=== PATIENT | female | born 1990 | race Hispanic/Latino ===

== ENCOUNTER 2018-03-26 17:25 | Emergency (ER) | payer OTHER, SELFPAY ==
[2018-03-26 20:32] LABS: Urine Blood NEGATIVE (NEG); Urine Glucose NEGATIVE (NEG); Urine Protein NEGATIVE (NEG); Urine pH 7.5 (5.0-7.0)
[2018-03-26 20:35] LABS: Urine Amorphous Sediment 1+ /HPF (NONE SEEN); Urine Bacteria <20 /HPF (<20); Urine Culture Reflex Order NOT NEEDED; Urine RBC <5 /HPF (NONE SEEN)
--- NOTE | 2018-03-26 20:48 | ER ---
Nurse's Notes [facility] Name: Raissa Goel Age: 28 yrs Sex: Female : 1990 Arrival Date: 03/26/2018 Time: 17:30 Bed 26 Private MD: Diagnosis: Contusion of abdominal wall;early Presentation: 03/26 17:57 Presenting complaint: Patient states: Reports slipping while walking down stairs and aj sliding on her bottom down "a few stairs". Reports lower back pain that started today. Denies vaginal bleeding. Ambulated with steady quick gait and displayed no discomfort when sitting or standing. Care prior to arrival: None. Mechanism of Injury: Fall from standing position. Trauma event details: Injury occurred in the [facility], Injury occurred: at home. Injury occurred: March 25, 2018. 17:57 Acuity: SENA 4 aj 17:57 Method Of Arrival: Ambulatory aj 20:54 Transition of care: patient was not received from another setting of care. Onset of rv symptoms was March 25, 2018 at 12:00. Risk Assessment: Do you want to hurt yourself or someone else? Patient reports no desire to harm self or others. Initial Sepsis Screen: Does the patient meet any 2 criteria? No. Patient's initial sepsis screen is negative. Does the patient have a suspected source of infection? No. Patient's initial sepsis screen is negative. 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 - Social history:: Smoking status: Patient/guardian denies using tobacco. - Ebola Screening: : Patient negative for fever greater than or equal to 101.5 degrees Fahrenheit, and additional compatible Ebola Virus Disease symptoms Patient denies exposure to infectious person Patient denies travel to an Ebola-affected area in the 21 days before illness onset No symptoms or risks identified at this time. Screenin:53 Abuse screen: Denies threats or abuse. Denies injuries from another. Nutritional rv screening: No deficits noted. Tuberculosis screening: No symptoms or risk factors identified. Fall Risk None identified. Primary Survey: 17:57 Breathing/Chest: Respiratory pattern: regular, Respiratory effort: spontaneous, aj unlabored, Breath sounds: clear, bilaterally. Circulation: Skin color: pink, Skin temperature: warm, dry. Disability Alert. 20:54 Reassessment Breathing/Chest Respiratory pattern Regular. rv Assessment: 17:57 General: Appears in no apparent distress. comfortable, Behavior is calm, cooperative, aj appropriate for age. Pain: Complains of pain in buttocks. Neuro: Level of Consciousness is awake, alert, obeys commands, Oriented to person, place, time, situation, Appropriate for age. Respiratory: Airway is patent Respiratory effort is even, unlabored, Respiratory pattern is regular, symmetrical. Derm: Skin is intact, is healthy with good turgor, Skin is pink, warm \\T\\ dry. normal. Musculoskeletal: Reports pain in buttocks. 19:59 Reassessment: Patient appears in no apparent distress at this time. rv Vital Signs: 17:57 BP 101 / 66; Pulse 94; Resp 20; Temp 97.5; Pulse Ox 100% on R/A; Weight 57.15 kg; aj Height 5 ft. 1 in. (154.94 cm); 19:59 BP 111 / 90; Pulse 88; Resp 16; Pulse Ox 100% on R/A; rv 20:00 BP 98 / 61; Pulse 82; Resp 16; Pulse Ox 100% ; rv 20:00 Pulse 84; Resp 17; Pulse Ox 100% ; rv 20:53 BP 100 / 59; Pulse 82; Resp 15; Pulse Ox 100% on R/A; rv 17:57 Body Mass Index 23.81 (57.15 kg, 154.94 cm) aj [place] Coma Score: 17:57 Eye Response: spontaneous(4). Verbal Response: oriented(5). Motor Response: obeys commands(6). Total: 15. Trauma Score (Adult): 17:57 Eye Response: spontaneous(1); Verbal Response: oriented(1); Motor Response: obeys aj commands(2); Systolic BP: > 89 mm Hg(4); Respiratory Rate: 10 to 29 per min(4); Rolando Score: 15; Trauma Score: 12 ED Course: 17:30 Patient arrived in ED. mr 17:59 Triage completed. aj 18:01 Arm band placed on left wrist. Patient placed in waiting room, Patient notified of wait aj time. 19:41 Shivani Lin LVN is Primary Nurse. ed1 19:41 Deon Grissom MD is Attending Physician. gs 19:58 Urine Culture Sent. rv 19:58 Urine Microscopic Only Sent. rv 20:38 TRANSVAG OB In Process Unspecified. EDMS 20:38 Ultrasound completed. Patient tolerated well. Patient moved back from ultrasound. cy 20:46 Yanet Canada MD is Referral Physician. gs 20:53 No provider procedures requiring assistance completed. Patient did not have IV access rv during this emergency room visit. 20:55 Patient has correct armband on for positive identification. Bed in low position. Call rv light in reach. Side rails up X 1. Pulse ox on. NIBP on. Administered Medications: No medications were administered Outcome: 20:47 Discharge ordered by . gs 20:54 Discharged to home ambulatory. rv 20:54 Condition: good 20:54 Discharge instructions given to patient, Instructed on discharge instructions, follow up and referral plans. Demonstrated understanding of instructions, follow-up care. 20:55 Patient left the ED. rv Signatures: Dispatcher [employer] EDIzabella Almendarez, CATHY MartinaChloe mr RileyShivani, JOSUE NEEDLE STRAIGHTENER ed1 Deon Grissom MD MD gs Yong, Chheannith Sancho Peterson RN RN rv
--- NOTE | 2018-03-26 20:48 | EDPHYS ---
Physician Documentation [facility] Name: Raissa Goel Age: 28 yrs Sex: Female : 1990 Arrival Date: 03/26/2018 Time: 17:30 Bed 26 Private MD: ED Physician Deon Grissom HPI: 03/26 20:40 This 28 yrs old Female presents to ER via Ambulatory with complaints of 5 wks gs , Fall Injury, Abdominal Cramping. 20:40 Details of fall: The patient fell from an upright position, while walking, fell 2 gs steps. Onset: The symptoms/episode began/occurred acutely, yesterday. Associated injuries: The patient sustained right iliac crest. Severity of symptoms: At their worst the symptoms were mild, in the emergency department the symptoms are unchanged. The patient has experienced similar episodes in the past, a few times. The patient has not recently seen a physician. 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 - Social history:: Smoking status: Patient/guardian denies using tobacco. - Ebola Screening: : Patient negative for fever greater than or equal to 101.5 degrees Fahrenheit, and additional compatible Ebola Virus Disease symptoms Patient denies exposure to infectious person Patient denies travel to an Ebola-affected area in the 21 days before illness onset No symptoms or risks identified at this time. ROS: 20:40 All other systems are negative. gs Exam: 20:40 Head/Face: Normocephalic, atraumatic. Eyes: Pupils equal round and reactive to light, gs extra-ocular motions intact. Lids and lashes normal. Conjunctiva and sclera are non-icteric and not injected. Cornea within normal limits. Periorbital areas with no swelling, redness, or edema. ENT: Nares patent. No nasal discharge, no septal abnormalities noted. Tympanic membranes are normal and external auditory canals are clear. Oropharynx with no redness, swelling, or masses, exudates, or evidence of obstruction, uvula midline. Mucous membranes moist. Neck: Trachea midline, no thyromegaly or masses palpated, and no cervical lymphadenopathy. Supple, full range of motion without nuchal rigidity, or vertebral point tenderness. No Meningismus. Chest/axilla: Normal chest wall appearance and motion. Nontender with no deformity. No lesions are appreciated. Cardiovascular: Regular rate and rhythm with a normal S1 and S2. No gallops, murmurs, or rubs. Normal PMI, no JVD. No pulse deficits. Respiratory: Lungs have equal breath sounds bilaterally, clear to auscultation and percussion. No rales, rhonchi or wheezes noted. No increased work of breathing, no retractions or nasal flaring. Abdomen/GI: Soft, non-tender, with normal bowel sounds. No distension or tympany. No guarding or rebound. No evidence of tenderness throughout. Back: No spinal tenderness. No costovertebral tenderness. Full range of motion. Skin: Warm, dry with normal turgor. Normal color with no rashes, no lesions, and no evidence of cellulitis. MS/ Extremity: Pulses equal, no cyanosis. Neurovascular intact. Full, normal range of motion. Neuro: Awake and alert, GCS 15, oriented to person, place, time, and situation. Cranial nerves II-XII grossly intact. Motor strength 5/5 in all extremities. Sensory grossly intact. Cerebellar exam normal. Normal gait. 20:40 Constitutional: The patient appears alert, awake. Vital Signs: 17:57 BP 101 / 66; Pulse 94; Resp 20; Temp 97.5; Pulse Ox 100% on R/A; Weight 57.15 kg; aj Height 5 ft. 1 in. (154.94 cm); 19:59 BP 111 / 90; Pulse 88; Resp 16; Pulse Ox 100% on R/A; rv 20:00 BP 98 / 61; Pulse 82; Resp 16; Pulse Ox 100% ; rv 20:00 Pulse 84; Resp 17; Pulse Ox 100% ; rv 20:53 BP 100 / 59; Pulse 82; Resp 15; Pulse Ox 100% on R/A; rv 17:57 Body Mass Index 23.81 (57.15 kg, 154.94 cm) aj Rolando Coma Score: 17:57 Eye Response: spontaneous(4). Verbal Response: oriented(5). Motor Response: obeys aj commands(6). Total: 15. Trauma Score (Adult): 17:57 Eye Response: spontaneous(1); Verbal Response: oriented(1); Motor Response: obeys aj commands(2); Systolic BP: > 89 mm Hg(4); Respiratory Rate: 10 to 29 per min(4); Rolando Score: 15; Trauma Score: 12 MDM: 19:58 Patient medically screened. gs 20:40 Differential diagnosis: contusion. Data reviewed: vital signs, nurses notes. Counseling: I had a detailed discussion with the patient and/or guardian regarding: the historical points, exam findings, and any diagnostic results supporting the discharge/admit diagnosis, lab results, radiology results, the need for outpatient follow up. Response to treatment: the patient's symptoms have markedly improved after treatment, and as a result, I will discharge patient. 03/26 17:42 Order name: Urine Culture snw 03/26 17:42 Order name: Urine Microscopic Only; Complete Time: 20:40 snw 03/26 17:42 Order name: Urine Test (obtain specimen); Complete Time: 19:58 snw 03/26 19:59 Order name: US OB Limited 03/26 20:04 Order name: Urine Dipstick--Ancillary (enter results); Complete Time: 20:40 ar5 03/26 20:04 Order name: TRANSVAG OB EDND 03/26 17:42 Order name: Urine Dipstick-Ancillary (obtain specimen); Complete Time: 19:58 snw Administered Medications: No medications were administered Disposition: 03/26/18 20:47 Discharged to Home. Impression: Contusion of abdominal wall, early . - Condition is Stable. - Discharge Instructions: Contusion. - Medication Reconciliation Form, Thank You Letter, Antibiotic Education, Prescription Opioid Use form. - Follow up: Yanet Canada MD; When: 2 - 3 days; Reason: Re-evaluation by your physician. Signatures: Dispatcher [employer] Izabella Yusuf RN RN Gris Morales, ARABELLAC BONE CHAR KILN OPERATOR-Florenciow Deon Grissom MD MD gs Vicente, Ronaldo, RN RN rv Corrections: (The following items were deleted from the chart) 20:55 20:47 03/26/2018 20:47 Discharged to Home. Impression: Contusion of abdominal wall; rv early . Condition is Stable. Forms are Medication Reconciliation Form, Thank You Letter, Antibiotic Education, Prescription Opioid Use. Follow up: Mini Rekhi; When: 2 - 3 days; Reason: Re-evaluation by your physician. gs
--- NOTE | 2018-03-26 21:19 | RAD REPORT ---
EXAM DESCRIPTION: US - TRANSVAG OB - 03/26/2018 8:38 pm CLINICAL HISTORY: status post fall COMPARISON: None FINDINGS: The uterus measures 8 x 5 x 5 centimeters. A gestational sac is not seen within the endome trium. Small amount of fluid is present within the endometrium. A fibroid is not seen Ovaries are normal in size and echotexture. No significant free fluid IMPRESSION: Gestational sac is not seen within the endometrium. This could represent a normal intrau terine in which the gestational sac is not seen secondary to the early age. An can also have this appearance. A follow up endovaginal sonogram in 1 week is recommended
== END 2018-03-26 20:55 | disposition home or self-care (01) ==
LOC: ER 17:25
DX: S30.1XXA Contusion of abdominal wall, initial encounter (principal); W19.XXXA Unspecified fall, initial encounter; Y93.01 Activity, walking, marching and hiking; Y92.9 Unspecified place or not applicable; Z3A.01 Less than 8 weeks gestation of pregnancy
CPT/HCPCS: 76813; 81003; 81015; 87086; 87088; 99284

== ENCOUNTER 2018-04-12 15:09 | Emergency (ER) | payer OTHER, SELFPAY ==
[2018-04-12 15:34] LABS: Urine Blood 2+ (NEG); Urine Glucose NEGATIVE (NEG); Urine Protein TRACE (NEG); Urine Specific Gravity 1.025 (1.005-1.030)
[2018-04-12] MEDS ORDERED: NA CHLORIDE 0.9% 1,000 ML ONE (16:24)
[2018-04-12 17:00] LABS: Absolute Lymphocytes (CBC) 1.4 K/uL (0.7-4.9); Absolute Monocytes 0.4 K/uL (0.1-1.3); Absolute Neutrophil 4.1 K/uL (1.8-8.0); Basophils % 0.7 % (0-1.3); Eosinophils % 4.9 % (0-4.4); Hematocrit 43.4 % (36.0-45.0); MCH 25.4 pg (27.0-35.0); MCV 78.6 fL (80-100); MPV 8.9 fL (7.6-11.3); Monocytes % 6.9 % (3.3-12.3); RBC Red Blood Cell Count 5.52 M/uL (3.86-4.86)
[2018-04-12 17:09] LABS: BUN Blood Urea Nitrogen 15 mg/dL (7-18); Bicarbonate 27 mmol/L (21-32); Glucose Level 97 mg/dL (74-106); HCG, Quantitative 1369 mIU/mL (1-3); Potassium 3.4 mmol/L (3.5-5.1); Sodium Level 137 mmol/L (136-145)
--- NOTE | 2018-04-12 18:30 | ER ---
Nurse's Notes [facility] Name: Raissa Goel Age: 28 yrs Sex: Female : 1990 Arrival Date: 04/12/2018 Time: 15:11 Bed 16 Private MD: Diagnosis: Threatened Presentation: 04/12 15:11 Presenting complaint: Patient states: LMP- 02/17/18; 8 weeks AOG; im bleeding that hj started today; heavy bleeding; denies abd pain; A0;. Transition of care: patient was not received from another setting of care. Onset of symptoms was April 12, 2018. Risk Assessment: Do you want to hurt yourself or someone else? Patient reports no desire to harm self or others. Initial Sepsis Screen: Does the patient meet any 2 criteria? No. Patient's initial sepsis screen is negative. Does the patient have a suspected source of infection? No. Patient's initial sepsis screen is negative. Care prior to arrival: None. 15:11 Method Of Arrival: Ambulatory 15:11 Acuity: SENA 3 hj Triage Assessment: 15:14 General: Appears in no apparent distress. uncomfortable, Behavior is calm, cooperative, hj appropriate for age. Pain: Denies pain. : Reports vaginal bleeding that is heavy flow since few minutes ago;. 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 - Social history:: Smoking status: Patient/guardian denies using tobacco, Patient/guardian denies using alcohol. - Ebola Screening: : Patient negative for fever greater than or equal to 101.5 degrees Fahrenheit, and additional compatible Ebola Virus Disease symptoms Patient denies exposure to infectious person Patient denies travel to an Ebola-affected area in the 21 days before illness onset. Screenin:15 Abuse screen: Denies threats or abuse. Denies injuries from another. Nutritional hj screening: No deficits noted. Tuberculosis screening: No symptoms or risk factors identified. Fall Risk None identified. Assessment: 15:20 General: Appears in no apparent distress. comfortable, Behavior is calm, cooperative, rb1 Denies fever. Pain: Denies pain. Neuro: Level of Consciousness is awake, alert, obeys commands, Oriented to person, place, time, situation, Reports dizziness. Cardiovascular: Capillary refill < 3 seconds is brisk in bilateral fingers. Respiratory: Reports cough that is non-productive, since x 2 weeks Airway is patent Respiratory effort is even, unlabored, Respiratory pattern is regular, symmetrical. GI: No signs and/or symptoms were reported involving the gastrointestinal system. : Reports vaginal bleeding that is bright red, moderate flow, since 30 minutes ago Denies blood clots. Derm: Skin is dry, Skin is normal, Skin temperature is warm. 16:20 Reassessment: Patient appears in no apparent distress at this time. Patient and/or rb1 family updated on plan of care and expected duration. Pain level reassessed. Patient is alert, oriented x 3, equal unlabored respirations, skin warm/dry/pink. Patient denies pain at this time. 17:20 Reassessment: Patient appears in no apparent distress at this time. No changes from rb1 previously documented assessment. 18:20 Reassessment: Patient appears in no apparent distress at this time. Patient and/or rb1 family updated on plan of care and expected duration. Pain level reassessed. Patient is alert, oriented x 3, equal unlabored respirations, skin warm/dry/pink. Pt. ambulated to the bathroom without difficulty. Pt reports that the vaginal bleeding has stopped at this time. Provider notified. Vital Signs: 15:15 BP 105 / 71; Pulse 128; Resp 18; Temp 97.8(O); Pulse Ox 100% on R/A; Weight 57.15 kg; hj Height 5 ft. 1 in. (154.94 cm); Pain 0/10; 16:00 BP 102 / 70; Pulse 89; Resp 16; Pulse Ox 100% on R/A; Pain 0/10; rb1 17:00 BP 107 / 78; Pulse 82; Resp 17; Pulse Ox 100% on R/A; rb1 18:00 BP 107 / 63; Pulse 75; Resp 16; Pulse Ox 100% on R/A; rb1 18:49 BP 112 / 75; Pulse 78; Resp 16; Pulse Ox 100% on R/A; rb1 15:15 Body Mass Index 23.81 (57.15 kg, 154.94 cm) ED Course: 15:11 Patient arrived in ED. as 15:12 Josephine Owusu FNP-C is [facility]. kb 15:12 Deon Grissom MD is Attending Physician. kb 15:13 Triage completed. hj 15:15 Arm band placed on right wrist. hj 15:15 Patient has correct armband on for positive identification. Placed in gown. Bed in low hj position. Call light in reach. Side rails up X 1. 15:21 Sandra Candelario, RN is Primary Nurse. rb1 16:20 Pulse ox on. NIBP on. rb1 18:27 Ultrasound completed. Patient tolerated well. Notified TECHNOLOGIES DIVISION CHAIR/PA josephine. sg3 18:51 No provider procedures requiring assistance completed. IV discontinued, intact, rb1 bleeding controlled, No redness/swelling at site. Pressure dressing applied. Administered Medications: 16:18 Drug: NS 0.9% 1000 ml Route: IV; Rate: 1000 ml; Site: left antecubital; rb1 17:20 Follow up: IV Status: Completed infusion rb1 18:30 Drug: Tylenol 1000 mg Route: PO; rb1 18:50 Follow up: Response: No adverse reaction rb1 Outcome: 18:29 Discharge ordered by MD. kb 18:51 Discharged to home ambulatory. rb1 18:51 Condition: stable 18:51 Discharge instructions given to patient, Instructed on discharge instructions, follow up and referral plans. Demonstrated understanding of instructions, follow-up care, Prescriptions given X none 18:52 Patient left the ED. rb1 Signatures: Josephine Owusu FNP-C FNP-Clau Simon Henry, RN RN Sandra Candelraio, RN RN rb1 Kate Tyler sg3 Corrections: (The following items were deleted from the chart) 15:17 15:15 Pulse 128bpm; Resp 18bpm; Pulse Ox 100% RA; Temp 97.8F Oral; 57.15 kg; Height 5 hj ft. 1 in.; BMI: 23.8; Pain 0/10; hj
--- NOTE | 2018-04-12 18:30 | EDPHYS ---
Physician Documentation [facility] Name: Raissa Goel Age: 28 yrs Sex: Female : 1990 Arrival Date: 04/12/2018 Time: 15:11 Bed 16 Private MD: ED Physician Deon Grissom HPI: 04/12 15:42 This 28 yrs old Female presents to ER via Ambulatory with complaints of kb Vaginal Bleeding, + Preg <12wks. 15:42 The patient presents to the emergency department with vaginal bleeding, that is kb moderate. The estimated gestational age is 8 weeks. course: care: none, Leakage of Fluid: none appreciated. Previous pregnancies: in previous pregnancies patient has had. Associated signs and symptoms: Pertinent positives: vaginal bleeding, Pertinent negatives: abdominal pain, chest pain, diarrhea, dysuria, fever, frequency, nausea, ruptured membranes, seizure, shortness of breath, vaginal discharge, vomiting. The patient has not experienced similar symptoms in the past. The patient has not recently seen a physician. 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 Reports it started when she got out of the shower. . 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 - Social history:: Smoking status: Patient/guardian denies using tobacco, Patient/guardian denies using alcohol. - Ebola Screening: : Patient negative for fever greater than or equal to 101.5 degrees Fahrenheit, and additional compatible Ebola Virus Disease symptoms Patient denies exposure to infectious person Patient denies travel to an Ebola-affected area in the 21 days before illness onset. ROS: 15:42 Constitutional: Negative for fever, chills, and weight loss, Cardiovascular: Negative kb for chest pain, palpitations, and edema, Respiratory: Negative for shortness of breath, cough, wheezing, and pleuritic chest pain, Abdomen/GI: Negative for abdominal pain, nausea, vomiting, diarrhea, and constipation, Back: Negative for injury and pain, MS/Extremity: Negative for injury and deformity, Skin: Negative for injury, rash, and discoloration, Neuro: Negative for headache, weakness, numbness, tingling, and seizure. 15:42 : Positive for vaginal bleeding. Exam: 15:42 Constitutional: This is a well developed, well nourished patient who is awake, alert, kb and in no acute distress. Head/Face: Normocephalic, atraumatic. ENT: Nares patent. No nasal discharge, no septal abnormalities noted. Tympanic membranes are normal and external auditory canals are clear. Oropharynx with no redness, swelling, or masses, exudates, or evidence of obstruction, uvula midline. Mucous membranes moist. Neck: Trachea midline, no thyromegaly or masses palpated, and no cervical lymphadenopathy. Supple, full range of motion without nuchal rigidity, or vertebral point tenderness. No Meningismus. Chest/axilla: Normal chest wall appearance and motion. Nontender with no deformity. No lesions are appreciated. Cardiovascular: Regular rate and rhythm with a normal S1 and S2. No gallops, murmurs, or rubs. Normal PMI, no JVD. No pulse deficits. Respiratory: Lungs have equal breath sounds bilaterally, clear to auscultation and percussion. No rales, rhonchi or wheezes noted. No increased work of breathing, no retractions or nasal flaring. Abdomen/GI: Soft, non-tender, with normal bowel sounds. No distension or tympany. No guarding or rebound. No evidence of tenderness throughout. Skin: Warm, dry with normal turgor. Normal color with no rashes, no lesions, and no evidence of cellulitis. MS/ Extremity: Pulses equal, no cyanosis. Neurovascular intact. Full, normal range of motion. Neuro: Awake and alert, GCS 15, oriented to person, place, time, and situation. Cranial nerves II-XII grossly intact. Motor strength 5/5 in all extremities. Sensory grossly intact. Cerebellar exam normal. Normal gait. Vital Signs: 15:15 BP 105 / 71; Pulse 128; Resp 18; Temp 97.8(O); Pulse Ox 100% on R/A; Weight 57.15 kg; hj Height 5 ft. 1 in. (154.94 cm); Pain 0/10; 16:00 BP 102 / 70; Pulse 89; Resp 16; Pulse Ox 100% on R/A; Pain 0/10; rb1 17:00 BP 107 / 78; Pulse 82; Resp 17; Pulse Ox 100% on R/A; rb1 18:00 BP 107 / 63; Pulse 75; Resp 16; Pulse Ox 100% on R/A; rb1 18:49 BP 112 / 75; Pulse 78; Resp 16; Pulse Ox 100% on R/A; rb1 15:15 Body Mass Index 23.81 (57.15 kg, 154.94 cm) hj MDM: 15:18 Patient medically screened. kb 15:44 Data reviewed: vital signs, nurses notes. Data interpreted: Pulse oximetry: on room air kb is 100 %. Interpretation: normal. 18:22 Counseling: I had a detailed discussion with the patient and/or guardian regarding: the kb historical points, exam findings, and any diagnostic results supporting the discharge/admit diagnosis, lab results, radiology results, the need for outpatient follow up, an OB/Gyne specialist, to return to the emergency department if symptoms worsen or persist or if there are any questions or concerns that arise at home. 04/12 15:25 Order name: Quantitative Hcg 04/12 15:25 Order name: Abo/rh Typing 04/12 15:25 Order name: Basic Metabolic Panel 04/12 15:25 Order name: CBC with Diff 04/12 15:32 Order name: Urine Dipstick--Ancillary (enter results) [facility] 04/12 15:32 Order name: Urine --Ancillary (enter results) [facility] 04/12 15:34 Order name: Urine --Ancillary; Complete Time: 15:35 [facility] 04/12 15:34 Order name: Urine Dipstick-Ancillary; Complete Time: 15:35 [facility] 04/12 17:03 Order name: CBC with Automated Diff; Complete Time: 17:04 [facility] 04/12 17:09 Order name: Basic Metabolic Panel; Complete Time: 17:12 [facility] 04/12 17:09 Order name: HCG, Quantitative; Complete Time: 17:12 [facility] 04/12 17:12 Order name: US Transvaginal Ob kb 04/12 18:10 Order name: ABO/RH no charge; Complete Time: 18:12 [facility] 04/12 18:11 Order name: ABO/RH typing; Complete Time: 18:12 [facility] 04/12 15:25 Order name: Urine Test (obtain specimen); Complete Time: 16:13 kb 04/12 15:25 Order name: IV Saline Lock; Complete Time: 16:13 kb 04/12 15:25 Order name: Labs collected and sent; Complete Time: 16:13 kb 04/12 15:25 Order name: NPO; Complete Time: 16:13 kb 04/12 15:25 Order name: Urine Dipstick-Ancillary (obtain specimen); Complete Time: 16:13 kb Administered Medications: 16:18 Drug: NS 0.9% 1000 ml Route: IV; Rate: 1000 ml; Site: left antecubital; rb1 17:20 Follow up: IV Status: Completed infusion rb1 18:30 Drug: Tylenol 1000 mg Route: PO; rb1 18:50 Follow up: Response: No adverse reaction rb1 Disposition: 04/13 16:28 Co-signature as Attending Physician, Deon Grissom MD. Disposition: 04/12/18 18:29 Discharged to Home. Impression: Threatened . - Condition is Stable. - Discharge Instructions: Threatened Miscarriage, [id number]. - Medication Reconciliation Form, Thank You Letter, Antibiotic Education, Prescription Opioid Use form. - Follow up: Emergency Department; When: As needed; Reason: Worsening of condition. Follow up: Private Physician; When: 2 - 3 days; Reason: Recheck today's complaints, Continuance of care, Re-evaluation by your physician. - Notes: Have repeat quantitative Hcg done in 48 hours Signatures: Dispatcher [employer] [facility] Josephine Owusu FNP-C ENDOSCOPIC TECHNICIAN-Brant Dukes RN RN Sandra Candelario RN RN rb1 Deon Grissom MD MD Corrections: (The following items were deleted from the chart) 04/12 18:52 18:29 04/12/2018 18:29 Discharged to Home. Impression: Threatened . Condition rb1 is Stable. Discharge Instructions: Threatened Miscarriage, [id number]. Forms are Medication Reconciliation Form, Thank You Letter, Antibiotic Education, Prescription Opioid Use. Follow up: Emergency Department; When: As needed; Reason: Worsening of condition. Follow up: Private Physician; When: 2 - 3 days; Reason: Recheck today's complaints, Continuance of care, Re-evaluation by your physician. kb
[2018-04-12] MEDS ORDERED: ACETAMINOPHEN 500 MG TAB ONE (18:35)
--- NOTE | 2018-04-12 19:34 | RAD REPORT ---
EXAM DESCRIPTION: US - Transvaginal OB - 04/12/2018 6:29 pm CLINICAL HISTORY: Vaginal bleeding, beta HCG 1369 COMPARISON: None. FINDINGS: Both ovaries are identifiable. Doppler evaluation shows normal blood flow within the ovari an stroma. No adnexal mass to suspect an ectopic . No blood or fluid in the cul-de-sac. Uterus is 10.1 x 4.4 x 4.9 cm. No myometrial mass identifiable. No intrauterine gestational sac, yolk sac or pole identifiable. There is heterogeneous material in the lower uterine segment and heterogeneity of the endometrial tissue in the fundal and midportio n of the uterus. IMPRESSION: No IUP is identified. Heterogeneous material in the lower uterine segment may be remnant of miscarriage. No adnexal mass identified. No sonographic findings for ectopic .
== END 2018-04-12 18:52 | disposition home or self-care (01) ==
LOC: ER 15:09
DX: O20.0 Threatened abortion (principal); Z3A.08 8 weeks gestation of pregnancy
CPT/HCPCS: 36415; 76817; 80048; 81003; 81025; 84702; 85025; 86900; 86901; 96360; 99283; J7030

== ENCOUNTER 2018-04-14 17:52 | Emergency (ER) | payer SELFPAY ==
[2018-04-14 18:35] LABS: Absolute Lymphocytes (CBC) 1.4 K/uL (0.7-4.9); Absolute Monocytes 0.4 K/uL (0.1-1.3); Absolute Neutrophil 3.9 K/uL (1.8-8.0); Basophils % 0.7 % (0-1.3); Eosinophils % 4.5 % (0-4.4); Hematocrit 38.6 % (36.0-45.0); Lymphocytes % 23.3 % (15.3-44.8); MPV 8.2 fL (7.6-11.3); Monocytes % 6.8 % (3.3-12.3); RBC Red Blood Cell Count 4.84 M/uL (3.86-4.86)
--- NOTE | 2018-04-14 19:00 | ER ---
Nurse's Notes [facility] Name: Raissa Goel Age: 28 yrs Sex: Female : 1990 Arrival Date: 04/14/2018 Time: 17:56 Bed 16 Private MD: Diagnosis: Spontaneous Presentation: 04/14 17:57 Presenting complaint: Patient states: I had a miscarriage Friday, and you all said to ch come back and get my blood re drawn. Transition of care: patient was not received from another setting of care. Onset of symptoms was April 12, 2018. Risk Assessment: Do you want to hurt yourself or someone else? Patient reports no desire to harm self or others. Initial Sepsis Screen: Does the patient meet any 2 criteria? No. Patient's initial sepsis screen is negative. Does the patient have a suspected source of infection? No. Patient's initial sepsis screen is negative. Care prior to arrival: None. 17:57 Method Of Arrival: Ambulatory 17:57 Acuity: SENA 4 Triage Assessment: 17:59 General: Appears in no apparent distress. comfortable, Behavior is calm, cooperative, ch appropriate for age. Pain: Denies pain. Historical: - Allergies: 17:59 No Known Allergies; - Home Meds: 17:59 Vitamin Oral tab 1 tab once daily [Active]; ch - PMHx: 17:59 None; - PSHx: 17:59 D \T\ C; ch - Immunization history:: Adult Immunizations up to date. - Social history:: Smoking status: Patient/guardian denies using tobacco. - Ebola Screening: : Patient negative for fever greater than or equal to 101.5 degrees Fahrenheit, and additional compatible Ebola Virus Disease symptoms Patient denies exposure to infectious person Patient denies travel to an Ebola-affected area in the 21 days before illness onset No symptoms or risks identified at this time. Screenin:00 Abuse screen: Denies threats or abuse. Denies injuries from another. Nutritional bp screening: No deficits noted. Tuberculosis screening: No symptoms or risk factors identified. Fall Risk None identified. Assessment: 18:00 General: Appears in no apparent distress. comfortable, Behavior is calm, cooperative, bp appropriate for age. Pain: Denies pain. Neuro: Level of Consciousness is awake, alert, obeys commands, Oriented to person, place, time, situation, Appropriate for age. Cardiovascular: No deficits noted. Respiratory: Airway is patent Respiratory effort is even, unlabored, Respiratory pattern is regular, symmetrical. GI: No signs and/or symptoms were reported involving the gastrointestinal system. : No signs and/or symptoms were reported regarding the genitourinary system. EENT: No deficits noted. Derm: No deficits noted. Musculoskeletal: Circulation, motion, and sensation intact. Range of motion: intact in all extremities. 19:18 Reassessment: Patient appears in no apparent distress at this time. Patient and/or jb4 family updated on plan of care and expected duration. Pain level reassessed. Patient is alert, oriented x 3, equal unlabored respirations, skin warm/dry/pink. Vital Signs: 17:59 BP 103 / 62; Pulse 71; Resp 16; Temp 98.5; Pulse Ox 99% on R/A; Weight 57.15 kg; Height ch 5 ft. 1 in. (154.94 cm); Pain 0/10; 19:18 BP 103 / 75; Pulse 60; Resp 16; Pulse Ox 100% on R/A; jb4 17:59 Body Mass Index 23.81 (57.15 kg, 154.94 cm) ED Course: 17:56 Patient arrived in ED. sb2 17:58 Triage completed. ch 17:59 Arm band placed on left wrist. Patient placed in an exam room, on a stretcher. ch 18:00 Patient has correct armband on for positive identification. Bed in low position. Call bp light in reach. Side rails up X2. 18:04 Garrett Perez, CATHY is Primary Nurse. bp 18:14 Gris Mares FNP-C is PHCP. snw 18:14 Jimenez Carrizales MD is Attending Physician. snw 18:30 Initial lab(s) drawn, by ED staff, sent to lab. Inserted saline lock: 20 gauge in right mh5 antecubital area, using aseptic technique. Blood collected. 18:30 HCG-Quantitative Sent. 5 18:30 CBC with Diff Sent. 5 19:18 No provider procedures requiring assistance completed. IV discontinued, intact, jb4 bleeding controlled. Administered Medications: No medications were administered Outcome: 18:59 Discharge ordered by . snw 19:18 Discharged to home ambulatory. jb4 19:18 Condition: stable 19:18 Discharge instructions given to patient, Instructed on discharge instructions, follow up and referral plans. medication usage, Demonstrated understanding of instructions, follow-up care, medications, Prescriptions given X 2. 19:20 Patient left the ED. jb4 Signatures: Nohemy Dean, RN RN Gris Mares, MICROCHIP SPECIALIST-C MICROCHIP SPECIALIST-Csnw Torres Yañez RN RN jb4 Juliet Martinez [facility] Garrett Perez RN RN Monika Tracy 2
--- NOTE | 2018-04-14 19:00 | EDPHYS ---
Physician Documentation [facility] Name: Raissa Goel Age: 28 yrs Sex: Female : 1990 Arrival Date: 04/14/2018 Time: 17:56 Bed 16 Private MD: ED Physician Jimenez Carrizales HPI: 04/14 18:57 This 28 yrs old Female presents to ER via Ambulatory with complaints of LAB snw WORK. 18:57 The patient presents with pt needs repeat Hcg. Onset: The symptoms/episode snw began/occurred suddenly, 3 day(s) ago, and improved today. Severity of symptoms: At their worst the symptoms were moderate, in the emergency department the symptoms have improved, markedly. The patient has not experienced similar symptoms in the past. The patient has been recently seen by a physician: The patient has been recently seen at the [facility] Emergency Department, this week, for similar complaints the patient was told to return for a recheck, for repeat QHcg. Historical: - Allergies: 17:59 No Known Allergies; ch - Home Meds: 17:59 Vitamin Oral tab 1 tab once daily [Active]; ch - PMHx: 17:59 None; ch - PSHx: 17:59 D \T\ C; ch - Immunization history:: Adult Immunizations up to date. - Social history:: Smoking status: Patient/guardian denies using tobacco. - Ebola Screening: : Patient negative for fever greater than or equal to 101.5 degrees Fahrenheit, and additional compatible Ebola Virus Disease symptoms Patient denies exposure to infectious person Patient denies travel to an Ebola-affected area in the 21 days before illness onset No symptoms or risks identified at this time. ROS: 18:55 Constitutional: Negative for fever, chills, and weight loss, Eyes: Negative for injury, snw pain, redness, and discharge, ENT: Negative for injury, pain, and discharge, Neck: Negative for injury, pain, and swelling, Cardiovascular: Negative for chest pain, palpitations, and edema, Respiratory: Negative for shortness of breath, cough, wheezing, and pleuritic chest pain, Abdomen/GI: Negative for abdominal pain, nausea, vomiting, diarrhea, and constipation, Back: Negative for injury and pain, MS/Extremity: Negative for injury and deformity, Skin: Negative for injury, rash, and discoloration, Neuro: Negative for headache, weakness, numbness, tingling, and seizure. 18:55 : Positive for recheck miscarriage or progress. Exam: 18:55 Constitutional: This is a well developed, well nourished patient who is awake, alert, snw and in no acute distress. Head/Face: Normocephalic, atraumatic. Eyes: Pupils equal round and reactive to light, extra-ocular motions intact. Lids and lashes normal. Conjunctiva and sclera are non-icteric and not injected. Cornea within normal limits. Periorbital areas with no swelling, redness, or edema. ENT: Nares patent. No nasal discharge, no septal abnormalities noted. Tympanic membranes are normal and external auditory canals are clear. Oropharynx with no redness, swelling, or masses, exudates, or evidence of obstruction, uvula midline. Mucous membranes moist. Neck: Trachea midline, no thyromegaly or masses palpated, and no cervical lymphadenopathy. Supple, full range of motion without nuchal rigidity, or vertebral point tenderness. No Meningismus. Chest/axilla: Normal chest wall appearance and motion. Nontender with no deformity. No lesions are appreciated. Cardiovascular: Regular rate and rhythm with a normal S1 and S2. No gallops, murmurs, or rubs. Normal PMI, no JVD. No pulse deficits. Respiratory: Lungs have equal breath sounds bilaterally, clear to auscultation and percussion. No rales, rhonchi or wheezes noted. No increased work of breathing, no retractions or nasal flaring. Abdomen/GI: Soft, non-tender, with normal bowel sounds. No distension or tympany. No guarding or rebound. No evidence of tenderness throughout. Back: No spinal tenderness. No costovertebral tenderness. Full range of motion. Skin: Warm, dry with normal turgor. Normal color with no rashes, no lesions, and no evidence of cellulitis. MS/ Extremity: Pulses equal, no cyanosis. Neurovascular intact. Full, normal range of motion. Neuro: Awake and alert, GCS 15, oriented to person, place, time, and situation. Cranial nerves II-XII grossly intact. Motor strength 5/5 in all extremities. Sensory grossly intact. Cerebellar exam normal. Normal gait. Psych: Awake, alert, with orientation to person, place and time. Behavior, mood, and affect are within normal limits. Vital Signs: 17:59 BP 103 / 62; Pulse 71; Resp 16; Temp 98.5; Pulse Ox 99% on R/A; Weight 57.15 kg; Height ch 5 ft. 1 in. (154.94 cm); Pain 0/10; 19:18 BP 103 / 75; Pulse 60; Resp 16; Pulse Ox 100% on R/A; jb4 17:59 Body Mass Index 23.81 (57.15 kg, 154.94 cm) MDM: 18:19 Patient medically screened. [facility] 19:00 Data reviewed: vital signs, nurses notes. Data interpreted: Pulse oximetry: on room air snw is 99 %. Interpretation: normal. Counseling: I had a detailed discussion with the patient and/or guardian regarding: the historical points, exam findings, and any diagnostic results supporting the discharge/admit diagnosis, lab results, the need for outpatient follow up, to return to the emergency department if symptoms worsen or persist or if there are any questions or concerns that arise at home. Special discussion: Based on the history and exam findings, there is no indication for further emergent testing or inpatient evaluation. I discussed with the patient/guardian the need to see the OB Gyne specialist for further evaluation of the symptoms. I discussed with the patient/guardian the need to see the primary care provider for further evaluation of the symptoms. 12 18:14 Order name: CBC with Diff; Complete Time: 18:43 snw 12 18:14 Order name: HCG-Quantitative; Complete Time: 18:58 snw Administered Medications: No medications were administered Disposition: 04/15 06:42 Co-signature as Attending Physician, Jimenez Carrizales MD I agree with the assessment and [facility] plan of care. Disposition: 04/14/18 18:59 Discharged to Home. Impression: Spontaneous . - Condition is Stable. - Discharge Instructions: Miscarriage. - Prescriptions for Vitamin 27- 0.8 mg Oral Tablet - take 1 tablet by ORAL route once daily; 60 tablet. Diclofenac Sodium 75 mg Oral Tablet Sustained Release - take 1 tablet by ORAL route 2 times per day; 30 tablet. - Medication Reconciliation Form, Thank You Letter, Antibiotic Education, Prescription Opioid Use form. - Follow up: Private Physician; When: 2 - 3 days; Reason: Recheck today's complaints, Continuance of care. Follow up: Emergency Department; When: As needed; Reason: Worsening of condition. Signatures: Dispatcher [employer] Nohemy Rogers, RN RN Jimenez Serna MD MD cha Therrien, Shelly, MEDICAL BILL PROCESSOR-C MEDICAL BILL PROCESSOR-Csnw Torres Yañez RN RN jb4 Corrections: (The following items were deleted from the chart) 04/14 19:20 18:59 04/14/2018 18:59 Discharged to Home. Impression: Spontaneous . Condition jb4 is Stable. Forms are Medication Reconciliation Form, Thank You Letter, Antibiotic Education, Prescription Opioid Use. Follow up: Private Physician; When: 2 - 3 days; Reason: Recheck today's complaints, Continuance of care. Follow up: Emergency Department; When: As needed; Reason: Worsening of condition. snw
== END 2018-04-14 19:20 | disposition home or self-care (01) ==
LOC: ER 17:52
DX: O03.9 Complete or unspecified spontaneous abortion without complication (principal)
CPT/HCPCS: 36415; 84702; 85025; 99283

== ENCOUNTER 2018-12-16 17:45 | Emergency (ER) | payer MEDICAID, SELFPAY ==
[2018-12-16 18:32] LABS: Absolute Lymphocytes (CBC) 1.7 K/uL (0.7-4.9); Basophils % 0.3 % (0-1.3); Hematocrit 41.4 % (36.0-45.0); Lymphocytes % 16.4 % (15.3-44.8); MPV 8.4 fL (7.6-11.3); RBC Red Blood Cell Count 5.28 M/uL (3.86-4.86)
[2018-12-16 18:38] LABS: Urine Blood TRACE (NEG); Urine Glucose NEGATIVE (NEG); Urine Protein NEGATIVE (NEG); Urine Specific Gravity 1.015 (1.005-1.030)
[2018-12-16 18:55] LABS: BUN Blood Urea Nitrogen 9 mg/dL (7-18); Bicarbonate 25 mmol/L (21-32); Glucose Level 110 mg/dL (74-106); Potassium 3.7 mmol/L (3.5-5.1); Sodium Level 137 mmol/L (136-145)
[2018-12-16 19:07] LABS: HCG, Quantitative 62117 mIU/mL (1-3)
--- NOTE | 2018-12-16 19:17 | RAD REPORT ---
EXAM DESCRIPTION: US - OB Limited - 12/16/2018 6:57 pm CLINICAL HISTORY: with abdominal pain COMPARISON: None FINDINGS: The uterus measures 12 x 6 x 7 centimeters. Intrauterine in transverse presentat ion. Cardiac activity 161 beats per minute. The amniotic fluid is within normal limits. Placenta is a nterior. [place]-rump length 6.3 centimeters Right and left ovary normal in size and echotexture. Right and left adnexum unremarkable. No significant free fluid IMPRESSION: Single live intrauterine in transverse presentation The estimated gestational age 12 weeks 5 days SAULO 06/25/2019. If a survey is desired it should be performed in about 6 weeks
--- NOTE | 2018-12-16 19:24 | ER ---
Nurse's Notes [facility] Name: Raissa Goel Age: 28 yrs Sex: Female : 1990 Arrival Date: 12/16/2018 Time: 17:49 Bed 23 Private MD: Diagnosis: 12 weeks gestation of Presentation: 12/16 17:53 Presenting complaint: Patient states: I have been having abd cramping since I found out la1 I was and also having a [place]ed[place] sal[place] green colored discharge for the last few days. Pt denies vaginal bleeding. Transition of care: patient was not received from another setting of care. Onset of symptoms was December 16, 2018. Risk Assessment: Do you want to hurt yourself or someone else? Patient reports no desire to harm self or others. Initial Sepsis Screen: Does the patient meet any 2 criteria? No. Patient's initial sepsis screen is negative. Does the patient have a suspected source of infection? No. Patient's initial sepsis screen is negative. Care prior to arrival: None. 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 - Social history:: Smoking status: Patient/guardian denies using tobacco. - Ebola Screening: : No symptoms or risks identified at this time. Screenin:05 Abuse screen: Denies threats or abuse. Denies injuries from another. Nutritional ca1 screening: No deficits noted. Tuberculosis screening: No symptoms or risk factors identified. Fall Risk IV access (20 points). Assessment: 18:05 General: Appears in no apparent distress. comfortable, Behavior is calm, cooperative, ca1 appropriate for age. Pain: Complains of pain in suprapubic area, right lower quadrant and left lower quadrant Pain radiates to low back area Pain currently is 4 out of 10 on a pain scale. Quality of pain is described as crampy, Pain began since the Is intermittent. Neuro: Level of Consciousness is awake, alert, obeys commands, Oriented to person, place, time, situation. Cardiovascular: Heart tones S1 S2 present Capillary refill < 3 seconds Patient's skin is warm and dry. Respiratory: Airway is patent Respiratory effort is even, unlabored, Respiratory pattern is regular, symmetrical, Breath sounds are clear bilaterally. GI: Abdomen is flat, non-distended, Bowel sounds present X 4 quads. Abd is soft and non tender X 4 quads. : Parent/caregiver report the patient having discharge from vagina that is white, yellow, since 4 days ago. EENT: No deficits noted. No signs and/or symptoms were reported regarding the EENT system. Derm: Skin is intact, is healthy with good turgor, Skin is pink, warm \T\ dry. Musculoskeletal: Circulation, motion, and sensation intact. Capillary refill < 3 seconds, Range of motion: intact in all extremities. 19:27 Reassessment: Patient appears in no apparent distress at this time. Patient is alert, ca1 oriented x 3, equal unlabored respirations, skin warm/dry/pink. Vital Signs: 17:54 BP 119 / 90; Pulse 78; Resp 18; Temp 97.6; Pulse Ox 98% on R/A; Weight 59.42 kg; Height la1 5 ft. 1 in. (154.94 cm); 18:05 BP 118 / 87; Pulse 98; Resp 16 S; Pulse Ox 99% on R/A; ca1 19:27 BP 113 / 81; Pulse 95; Resp 16; Pulse Ox 99% on R/A; ca1 17:54 Body Mass Index 24.75 (59.42 kg, 154.94 cm) la1 ED Course: 17:49 Patient arrived in ED. mr 17:53 Triage completed. la1 17:54 Arm band placed on left wrist. la1 17:56 [facility] kb 17:56 Ian Allen MD is Attending Physician. kb 18:17 Bed in low position. Call light in reach. Side rails up X 1. Verbal reassurance given. jp3 Pulse ox on. NIBP on. 18:17 Initial lab(s) drawn, by me, sent to lab. Urine collected: clean catch specimen, clear, jp3 sahra colored. Inserted saline lock: 20 gauge in right antecubital area, using aseptic technique. Blood collected. Patient maintains SpO2 saturation greater than 95% on room air. 18:17 Urine Dipstick--Ancillary (enter results) Sent. jp3 18:33 Estela Zarate, RN is Primary Nurse. ca1 19:01 US OB Limited In Process Unspecified. EDMS 19:28 No provider procedures requiring assistance completed. IV discontinued, intact, ca1 bleeding controlled, No redness/swelling at site. Pressure dressing applied. Administered Medications: No medications were administered Outcome: 19:20 Discharge ordered by . kb 19:28 Discharged to home ambulatory. ca1 19:28 Condition: stable 19:28 Discharge instructions given to patient, Instructed on discharge instructions, follow up and referral plans. Demonstrated understanding of instructions, follow-up care. 19:29 Patient left the ED. ca1 Signatures: Dispatcher [employer] EDCA Josephine Owusu, [employer] MACHINE OPERATOR-Chloe Brown Tan Rogel, RN RN Jerardo Cleainng jp3 Estela Zarate, RN RN ca1
--- NOTE | 2018-12-16 19:25 | EDPHYS ---
Physician Documentation [facility] Name: Raissa Goel Age: 28 yrs Sex: Female : 1990 Arrival Date: 12/16/2018 Time: 17:49 Bed 23 Private MD: ED Physician Ian Allen HPI: 12/16 19:19 This 28 yrs old Female presents to ER via Ambulatory with complaints of 16 wks kb , Abdominal Cramping. 19:19 The patient presents to the emergency department with abdominal pain, of the suprapubic kb area, that started 4 day(s) ago, described as crampy. The estimated gestational age is 16 weeks. course: care: none. Previous pregnancies: in previous pregnancies patient has had. Associated signs and symptoms: Pertinent positives: abdominal pain, Pertinent negatives: vaginal bleeding, vaginal discharge. The patient has not experienced similar symptoms in the past. The patient has not recently seen a physician. 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 - Social history:: Smoking status: Patient/guardian denies using tobacco. - Ebola Screening: : No symptoms or risks identified at this time. ROS: 19:18 Constitutional: Negative for fever, chills, and weight loss, Cardiovascular: Negative kb for chest pain, palpitations, and edema, Respiratory: Negative for shortness of breath, cough, wheezing, and pleuritic chest pain, Back: Negative for injury and pain, : Negative for injury, bleeding, discharge, and swelling, MS/Extremity: Negative for injury and deformity, Skin: Negative for injury, rash, and discoloration, Neuro: Negative for headache, weakness, numbness, tingling, and seizure. 19:18 Abdomen/GI: Positive for abdominal cramps. Exam: 19:18 Constitutional: This is a well developed, well nourished patient who is awake, alert, kb and in no acute distress. Head/Face: Normocephalic, atraumatic. Neck: Trachea midline, no thyromegaly or masses palpated, and no cervical lymphadenopathy. Supple, full range of motion without nuchal rigidity, or vertebral point tenderness. No Meningismus. Chest/axilla: Normal chest wall appearance and motion. Nontender with no deformity. No lesions are appreciated. Cardiovascular: Regular rate and rhythm with a normal S1 and S2. No gallops, murmurs, or rubs. Normal PMI, no JVD. No pulse deficits. Respiratory: Lungs have equal breath sounds bilaterally, clear to auscultation and percussion. No rales, rhonchi or wheezes noted. No increased work of breathing, no retractions or nasal flaring. Abdomen/GI: Soft, non-tender, with normal bowel sounds. No distension or tympany. No guarding or rebound. No evidence of tenderness throughout. Skin: Warm, dry with normal turgor. Normal color with no rashes, no lesions, and no evidence of cellulitis. MS/ Extremity: Pulses equal, no cyanosis. Neurovascular intact. Full, normal range of motion. Neuro: Awake and alert, GCS 15, oriented to person, place, time, and situation. Cranial nerves II-XII grossly intact. Motor strength 5/5 in all extremities. Sensory grossly intact. Cerebellar exam normal. Normal gait. Vital Signs: 17:54 BP 119 / 90; Pulse 78; Resp 18; Temp 97.6; Pulse Ox 98% on R/A; Weight 59.42 kg; Height la1 5 ft. 1 in. (154.94 cm); 18:05 BP 118 / 87; Pulse 98; Resp 16 S; Pulse Ox 99% on R/A; ca1 19:27 BP 113 / 81; Pulse 95; Resp 16; Pulse Ox 99% on R/A; ca1 17:54 Body Mass Index 24.75 (59.42 kg, 154.94 cm) la1 MDM: 17:57 Patient medically screened. kb 19:18 Data reviewed: vital signs, nurses notes. Data interpreted: Pulse oximetry: on room air kb is 99 %. Interpretation: normal. Counseling: I had a detailed discussion with the patient and/or guardian regarding: the historical points, exam findings, and any diagnostic results supporting the discharge/admit diagnosis, lab results, radiology results, the need for outpatient follow up, an OB/Gyne specialist, to return to the emergency department if symptoms worsen or persist or if there are any questions or concerns that arise at home. 12/16 17:57 Order name: Quantitative Hcg; Complete Time: 19:15 kb 12/16 17:57 Order name: Abo/rh Typing; Complete Time: 19:15 kb 12/16 17:57 Order name: Basic Metabolic Panel; Complete Time: 19:15 kb 12/16 17:57 Order name: CBC with Diff; Complete Time: 18:42 kb 12/16 18:12 Order name: Urine --Ancillary (enter results); Complete Time: 18:42 kb 12/16 18:12 Order name: Urine Dipstick--Ancillary (enter results); Complete Time: 18:42 kb 12/16 17:57 Order name: Urine Test (obtain specimen); Complete Time: 18:18 kb 12/16 17:57 Order name: IV Saline Lock; Complete Time: 18:18 kb 12/16 17:57 Order name: Labs collected and sent; Complete Time: 18:18 kb 12/16 17:57 Order name: NPO; Complete Time: 18:18 kb 12/16 17:57 Order name: Urine Dipstick-Ancillary (obtain specimen); Complete Time: 18:18 kb 12/16 18:12 Order name: OB Limited; Complete Time: 19:25 kb Administered Medications: No medications were administered Disposition: 12/16/18 19:20 Discharged to Home. Impression: 12 weeks gestation of . - Condition is Stable. - Discharge Instructions: First Trimester of , [id number]. - Medication Reconciliation Form, Thank You Letter, Antibiotic Education, Prescription Opioid Use form. - Follow up: Emergency Department; When: As needed; Reason: Worsening of condition. Follow up: Private Physician; When: 2 - 3 days; Reason: Recheck today's complaints, Continuance of care, Re-evaluation by your physician. Signatures: Dispatcher [employer] EDJosephine Cano, Tan Mackay RN RN la1 Estela Zarate RN RN ca1 Corrections: (The following items were deleted from the chart) 19:29 19:20 12/16/2018 19:20 Discharged to Home. Impression: 12 weeks gestation of . ca1 Condition is Stable. Forms are Medication Reconciliation Form, Thank You Letter, Antibiotic Education, Prescription Opioid Use. Follow up: Emergency Department; When: As needed; Reason: Worsening of condition. Follow up: Private Physician; When: 2 - 3 days; Reason: Recheck today's complaints, Continuance of care, Re-evaluation by your physician. kb
== END 2018-12-16 19:29 | disposition home or self-care (01) ==
LOC: ER 17:45
DX: O26.891 Other specified pregnancy related conditions, first trimester (principal)
CPT/HCPCS: 36415; 76815; 80048; 81003; 81025; 84702; 85025; 86900; 86901; 99284

== ENCOUNTER 2019-06-29 20:23 | Emergency (ER) | payer MEDICAID, OTHER ==
--- OUTSIDE RECORDS SUMMARY | 2019-06-29 20:25 | XMS REPORT | Summary of Care ---
:1990 Author Organization [facility] Address [address] [place] [id number] Care Team Providers Name Role Phone Giuliano Boyce SLICE CUTTING MACHINE OPERATOR Primary Care Provider Reason for Visit Reason Comments Care Encounter Details Date Type Department Care Team Description 05/21/2019 Routine [facility] RMP- Giuliano Boyce Supervision of high risk in third trimester (Primary Dx); Visit ROSIE Castillo History of delivery, currently ; [address] multip[address] [facility] [address] [place], [place] [phone] Allergies No Known Allergiesdocumented as of this encounter (statuses as of 05/21/2019) Medications Medication Sig Dispensed Refills Start Date End Date Status vit Take 1 Packet by 30 Each 6 03/31/2019 Active 13-mapa-xgxie-dha mouth daily. (SELECT-OB + DHA) 29 mg iron-1 mg -250 mg combo packIndications: Supervision of high risk , antepartum ferrous sulfate 325 mg Take 1 tablet by 60 tablet 3 05/18/2019 Active (65 mg iron) mouth 2 (two) tabletIndications: times daily. Anemia of mother in , antepartum ascorbic acid, vitamin Take 1 tablet by 90 tablet 3 05/18/2019 Active C, 500 mg mouth 3 (three) tabletIndications: times daily. Anemia of mother in , antepartum documented as of this encounter (statuses as of 05/21/2019) Active Problems Problem Noted Date of child 04/29/2019 Maternal varicella, non-immune 04/01/2019 Overview: Address in Supervision of high risk in third trimester 03/31/2019 Grand multiparity 10/17/2015 Overview: Plans IUD pp History of delivery, currently 10/17/2015 Estimated Date of Delivery Comments Yes 06/10/2019 Based on last menstrual period of 09/03/2018 (Exact Date) documented as of this encounter (statuses as of 05/21/2019) Resolved Problems Problem Noted Date Resolved Date 24 weeks gestation of 03/06/2019 03/31/2019 Vaginal discharge 03/06/2019 03/31/2019 History of urinary retention 02/05/2018 03/31/2019 Overview: After delivery Dysuria 02/05/2018 03/31/2019 Normal vaginal delivery 12/10/2015 02/05/2018 Urinary retention with incomplete bladder emptying 12/10/2015 02/05/2018 Overview: Pt requiring Red cath after delivery x 24 hrs, states occurred after last delivery also 37 weeks gestation of 12/08/2015 02/05/2018 Insufficient care, third trimester 12/08/2015 12/10/2015 Threatened labor at term 12/08/2015 12/10/2015 Indication for care or intervention in labor or delivery-Active 12/08/2015 Labor at Term Antepartum anemia in third trimester 12/01/2015 02/05/2018 Pelvic pressure in , antepartum, third trimester 11/30/20152015 History of spontaneous , currently , third 10/23/20152015 trimester History of anemia 10/23/2015 12/10/2015 Supervision of high-risk with insufficient 10/23/2015 care in third trimester documented as of this encounter (statuses as of 05/21/2019) Immunizations Name Administration Dates Next Due TDAP (ADACEL) VACCINE 03/31/2019 Tdap 11/13/2015 documented as of this encounter Social History Tobacco Use Types Packs/Day Years Used Date Never Smoker Smokeless Tobacco: Never Used Comments: not a smoker Alcohol Use Drinks/Week oz/Week Comments No 0 Standard drinks or equivalent 0.0 Estimated Date of Delivery Comments Yes 06/10/2019 Based on last menstrual period of 09/03/2018 (Exact Date) Sex Assigned at Date Recorded Not on file Job Start Date Occupation Industry Not on file Not on file Not on file Travel History Travel Start Travel End No recent travel history available. documented as of this encounter Last Filed Vital Signs Vital Sign Reading Time Taken Comments Blood Pressure 101/63 05/21/2019 12:54 PM SERVICE STATION MANAGER Pulse 90 05/21/2019 12:54 PM SERVICE STATION MANAGER Temperature 36.4 C (97.6 F) 05/21/2019 12:54 PM SERVICE STATION MANAGER Respiratory Rate 16 05/21/2019 12:54 PM SERVICE STATION MANAGER Oxygen Saturation - - Inhaled Oxygen Concentration - - Weight 72.4 kg (159 lb 9 oz) 05/21/2019 12:54 PM SERVICE STATION MANAGER Height 154.9 cm (5' 1") 05/21/2019 12:54 PM SERVICE STATION MANAGER Body Mass Index 30.15 05/21/2019 12:54 PM SERVICE STATION MANAGER documented in this encounter Progress Notes Giuliano Boyce, SLICE CUTTING MACHINE OPERATOR - 05/21/2019 12:45 PM CST Chief complaint: Chief Complaint Patient presents with Care HPI CC: Follow Up Visit Raissa Goel is a 29 year old, , /White female. Patient's last menstrual period was09/03/2018 (exact date). She is 37w1d with an intrauterine . Her estimated date of delivery is 06/10/2019, by Last Menstrual Period. She has no complaints today. She reports +FM and denies contractions, LOF and bleeding today. Reviewed OB/ER, PIH, labor and movement precautions. Encouragedpatient to go to [facility] for any signs and symptoms of labor (regular contractions, LOF, vaginal bleeding or decrease movement. Patient denies current or past physical, sexual or emotional abuse. Histories OB History Para Term AB Living 9 5 4 1 2 4 SAB TAB Ectopic Multiple Live Births 2 0 0 0 5 # Outcome Date GA Lbr Donell/2nd Weight Sex Delivery Anes PTL Lv 9 Current 8 SAB 03/2018 13w0d 7 Term 12/09/15 37w6d 6 lb 12 oz (3.062 kg) F VAGINAL KATIE 6 Term 07/31/14 39w0d 6 lb 12 oz (3.062 kg) F NORMAL SPONT EPI KATIE 5 07/15/13 34w0d 4 lb 2 oz (1.871 kg) F NORMAL SPONT KATIE Complications: Placenta Previa 4 Term 09/12/12 39w0d 6 lb 12 oz (3.062 kg) F NORMAL SPONT EPI KATIE 3 Term 07/15/11 39w0d 7 lb 4 oz (3.289 kg) F NORMAL SPONT EPI ND 2 SAB 2008 12w0d 1 Past Medical History: Diagnosis Date Anemia ongoing, taking supplements Grand multiparity 10/17/2015 Plans IUD pp Heart murmur resolved, had a heart murmur as a child History of anemia 10/23/2015 Indication for care or intervention in labor or delivery-Active Labor at Term 12/08/2015 Normal vaginal delivery 12/10/2015 Transfusion history 2011 2015, (2) Urinary retention with incomplete bladder emptying 12/10/2015 Pt requiring Red cath after delivery x 24 hrs, states occurred after last delivery also Family History Problem Relation Age of Onset No Significant Medical Problems Mother No Significant Medical Problems Father No Significant Medical Problems Sister No Significant Medical Problems Brother No Significant Medical Problems Maternal Aunt No Significant Medical Problems Maternal Uncle No Significant Medical Problems Paternal Aunt No Significant Medical Problems Paternal Uncle No Significant Medical Problems Maternal Grandmother No Significant Medical Problems Maternal Grandfather No Significant Medical Problems Paternal Grandmother No Significant Medical Problems Paternal Grandfather Arthritis NoFHx Asthma NoFHx defects NoFHx Breast Cancer NoFHx Colon Cancer NoFHx Ovarian Cancer NoFHx Uterine Cancer NoFHx Cancer NoFHx Depression NoFHx Diabetes NoFHx Genetic NoFHx Heart NoFHx High cholesterol NoFHx Hypertension NoFHx Mental retardation NoFHx Neurological NoFHx Osteoporosis NoFHx Psychiatry NoFHx Other - see comments NoFHx Family Status Relation Name Status Mo Alive Fa Alive Sis Alive Bro Alive MAunt (Not Specified) MUnc (Not Specified) PAunt (Not Specified) PUnc (Not Specified) MGMo Alive MGFa Alive PGMo Alive PGFa Alive NoFHx (Not Specified) Past Surgical History: Procedure Laterality Date DELIVER PLACENTA 12/09/2015 DILATION AND CURETTAGE (SHX) 2015 remove left over placentae MONITOR W/REPORT 12/09/2015 OBSTETRICAL CARE,VAG DELIV ONLY 12/09/2015 OXYTOCIN INDUCTION/AUGMENTATION REFERENCE LINK ORDER 12/09/2015 REPAIR VAGINA/PERINEUM 12/09/2015 Social History Socioeconomic History Marital status: Spouse name: Not on file Number of children: 3 Years of education: Not on file Highest education level: Not on file Occupational History Occupation: none Social Needs Financial resource strain: Not on file Food insecurity: Worry: Not on file Inability: Not on file Transportation needs: Medical: Not on file Non-medical: Not on file Tobacco Use Smoking status: Never Smoker Smokeless tobacco: Never Used Tobacco comment: not a smoker Substance and Sexual Activity Alcohol use: No Alcohol/week: 0.0 standard drinks Drug use: No Sexual activity: Yes Partners: Male control/protection: None Comment: last sexual intercourse 09/2018 Lifestyle Physical activity: Days per week: Not on file Minutes per session: Not on file Stress: Not on file Relationships Social connections: Talks on phone: Not on file Gets together: Not on file Attends yarsani service: Not on file Active member of club or organization: Not on file Attends meetings of clubs or organizations: Not on file Relationship status: Not on file Intimate partner violence: Fear of current or ex partner: Not on file Emotionally abused: Not on file Physically abused: Not on file Forced sexual activity: Not on file Other Topics Concern Service Not Asked Blood Transfusions Yes Caffeine Concern Not Asked Occupational Exposure Not Asked Hobby Hazards Not Asked Sleep Concern Not Asked Stress Concern Not Asked Weight Concern Not Asked Special Diet Not Asked Back Care Not Asked Exercise Not Asked Bike Helmet Not Asked Seat Belt Not Asked Self-Exams Not Asked Social History Narrative Pt states her yarsani preference is Oriental Orthodox Patient lives with four daughters and a friend. Patient has no cats in the home. Social History Substance and Sexual Activity Sexual Activity Yes Partners: Male control/protection: None Comment: last sexual intercourse 09/2018 Labs Labs are pending. Radiology No new radiology. Allergies Raissa has No Known Allergies. Medications Raissa has a current medication list which includes the following prescription( s): ascorbic acid (vitamin c), ferrous sulfate, and vit 40-jzwc-gazjd- dha. Review of Systems Constitutional: Negative for activity change, appetite change, fatigue, unexpected weight change, weight gain and weight loss. HENT: Negative for sore throat. Eyes: Negative for visual disturbance. Respiratory: Negative for cough and shortness of breath. Breasts: Negative for discharge, mass, pain and unequal size. Cardiovascular: Negative for chest pain, palpitations and leg swelling. Gastrointestinal: Negative. Negative for abdominal pain, anal bleeding, blood in stool, constipation, diarrhea, nausea, rectal pain and vomiting. Genitourinary: Negative for bladder incontinence, dysuria, urgency, flank pain, vaginal bleeding, vaginal discharge, genital sores, vaginal pain and pelvic pain. Skin: Negative for color change and rash. Neurological: Negative. Negative for dizziness, syncope and headaches. Psychiatric/Behavioral: Negative for confusion, self-injury and sleep disturbance. The patient is not nervous/anxious. Hematological: Negative for cold intolerance and heat intolerance. Endocrine: Negative for hair loss, cold intolerance, heat intolerance, weight gain and weight loss. BP 101/63 (BP Location: Right arm, Patient Position: Sitting, BP CUFF SIZE: Adult Medium) | Pulse 90 | Temp 36.4 C (97.6 F) (Oral) | Resp 16 | Ht 5 ' 1" (1.549 m) | Wt 159 lb 9 oz (72.4 kg) | LMP 09/03/2018 (Exact Date) | BMI 30.15 kg/m Pregravid BMI: Could not be calculated Physical Exam PHYSICAL: General Exam: Neurological: Normal Abdomen: Normal Extremities: Normal Pelvic Exam: Vagina: Single Needle Tufting Machine Operator present for the exam: Cheyanne Allen RN Cervix: 50/-3 Membrane status: Intact Uterus: 37cm Weeks Assessment/Plan Supervision of high risk in third trimester (primary encounter diagnosis) History of delivery, currently [place] multiparity Comment: Routine Visit Plan: POCT URINALYSIS GLUCOSE & PROTEIN Denies zika virus risk, signs and symptoms such as fever,rash,joint pain, conjunctivitis (red eyes), muscle pain, headaches; outside [place] travel to areas affected by zika, and FOB exposure to zika.Educated on use of mosquito repellent. Return to clinic in 2 weeks. Discussed treatment options. Medications as ordered. Reviewed patient instructions and provided printed copy. This visit did not involve counseling and coordination that comprised more than 50% of the visit time. ROSIE Olivo 05/21/2019 2:01 PM documented in this encounter Plan of Treatment Date Type Specialty Care Team Description 05/28/2019 Routine Visit OB Satellites Giuliano Boyce FNP [address] [place] [address] [phone] Health Maintenance Due Date Last Done Comments INFLUENZA VACCINE (#1) 2020 Postponed from 12/27/2018 (Refused) VARICELLA VACCINES (1 of 2 - 03/31/2020 Postponed from 1991 2-dose childhood series) ( or ) PAP SMEAR 02/05/2021 02/05/2018 DTaP,Tdap,and Td Vaccines (3 03/31/2029 03/31/2019, - Td) 11/13/2015 PNEUMOCOCCAL 0-64 YEARS Aged Out No longer eligible based COMBINED SERIES on patient's age to complete this topic documented as of this encounter Procedures Procedure Name Priority Date/Time Associated Diagnosis Comments POCT URINALYSIS Routine 05/21/2019 12:56 Supervision of high Results for this GLUCOSE & PROTEIN PM SERVICE STATION MANAGER risk in procedure are in third trimester the results section. documented in this encounter Results POCT URINALYSIS GLUCOSE & PROTEIN (05/21/2019 12:56 PM SERVICE STATION MANAGER) POCT U PROT trace Negative - Negative POCT U GLU neg Negative - Negative Specimen Urine - URINE, CLEAN CATCH documented in this encounter Visit Diagnoses Diagnosis Supervision of high risk in third trimester - Primary Unspecified high-risk History of delivery, currently with history of pre-term labor Grand multiparity documented in this encounter Insurance Payer Benefit Plan / Subscriber ID Effective Phone Address Type Group [facility] xxxxxxxxx 2019-Pres [address] Medicaid HEALTH CHOICE - HEALTH CHOICE [facility] [id number] MANAGED MEDICAID [place], [place] MEDICAID [id number] documented as of this encounter
--- OUTSIDE RECORDS SUMMARY | 2019-06-29 20:25 | XMS REPORT | Summary of Care ---
:1990 Author Organization [facility] Address [address] [place] [address] Care Team Providers Name Role Phone Giuliano Boyce CONTACT PERSON Primary Care Provider Reason for Visit Reason Comments Care Encounter Details Date Type Department Care Team Description 05/14/2019 Routine [facility] RMP- Giuliano Boyce Supervision of high risk , antepartum (Primary Dx); Visit ROSIE Castillo History of delivery, currently ; [address] [facility] [address] [place], [place] [phone] Allergies No Known Allergiesdocumented as of this encounter (statuses as of 05/14/2019) Medications Medication Sig Dispensed Refills Start Date End Date Status vit Take 1 Packet by 30 Each 6 03/31/2019 Active 37-uuxt-imtax-dha mouth daily. (SELECT-OB + DHA) 29 mg iron-1 mg -250 mg combo packIndications: Supervision of high risk , antepartum documented as of this encounter (statuses as of 05/14/2019) Active Problems Problem Noted Date of child 04/29/2019 Maternal varicella, non-immune 04/01/2019 Overview: Address in Supervision of high risk , antepartum 03/31/2019 Grand multiparity 10/17/2015 Overview: Plans IUD pp History of delivery, currently 10/17/2015 Estimated Date of Delivery Comments Yes 06/10/2019 Based on last menstrual period of 09/03/2018 (Exact Date) documented as of this encounter (statuses as of 05/14/2019) Resolved Problems Problem Noted Date Resolved Date [...] as of this encounter (statuses as of 05/14/2019) Immunizations Name Administration Dates Next Due TDAP [...] Sign Reading Time Taken Comments Blood Pressure 102/62 05/14/2019 1:38 PM CANNON PINION ADJUSTER Pulse 89 05/14/2019 1:38 PM CANNON PINION ADJUSTER Temperature 36.7 C (98 F) 05/14/2019 1:38 PM CANNON PINION ADJUSTER Respiratory Rate 16 05/14/2019 1:38 PM CANNON PINION ADJUSTER Oxygen Saturation - - Inhaled Oxygen Concentration - - Weight 71.8 kg (158 lb 4 oz) 05/14/2019 1:38 PM CANNON PINION ADJUSTER Height 154.9 cm (5' 1") 05/14/2019 1:38 PM CANNON PINION ADJUSTER Body Mass Index 29.9 05/14/2019 1:38 PM CANNON PINION ADJUSTER documented in this encounter Progress Notes Giuliano Boyce, CONTACT PERSON - 05/14/2019 1:45 PM CST Chief complaint: Chief Complaint Patient presents with Care HPI CC: Follow Up Visit Raissa Goel is a 29 year old, , /White female. Patient's last menstrual period was09/03/2018 (exact date). She is 36w1d with an intrauterine . Her estimated date of delivery is 06/10/2019, by Last Menstrual Period. She has no complaints today. She reports +FM and denies contractions, LOF and bleeding today. Reviewed OB/ER, PIH, labor and movement precautions. Encouraged patient to go to [facility] for any signs and symptoms of labor [...] Delivery Anes PTL Lv 9 Current 8 03/2018 13w0d 7 Term 12/09/15 37w6d 6 [...] kg) F NORMAL SPONT EPI ND 2 2008 12w0d 1 Past Medical History: Diagnosis [...] file Gets together: Not on file Attends pentecostalism service: Not on file Active member of [...] Asked Social History Narrative Pt states her pentecostalism preference is Buddhist Patient lives with four daughters and a friend. Patient has no cats in the home. Social History Substance and Sexual Activity Sexual Activity Yes Partners: Male control/protection: None Comment: last sexual intercourse 09/2018 Labs Labs are pending. Radiology No new radiology. Allergies Raissa has No Known Allergies. Medications Raissa has a current medication list which includes the following prescription( s): vit 75-jneb-aqogp-dha. Review of Systems Constitutional: Negative for activity [...] intolerance, weight gain and weight loss. BP 102/62 (BP Location: Right arm, Patient Position: Sitting, BP CUFF SIZE: Adult Medium) | Pulse 89 | Temp 36.7 C (98 F) (Oral) | Resp 16 | Ht 5' 1 " (1.549 m) | Wt 158 lb 4 oz (71.8 kg) | LMP 09/03/2018 (Exact Date) | BMI 29.90 kg/m Pregravid BMI: Could not be calculated Physical Exam Vitals reviewed. Constitutional: She is oriented to person, place, and time. She appears well- developed and well-nourished. Her body habitus is normal. Cardiovascular: Regular rate and rhythm. No peripheral edema present. Pulmonary/Chest: Normal inspiratory effort. Neuro/Psychiatric: Inappropriate mood and affect. She is oriented to person, place, and time. Skin: Skin normal. No lesion, no rash and no ulceration present. PHYSICAL: General Exam: Neurological: Normal Abdomen: Normal Extremities: Normal Pelvic Exam: Vagina: Nozzle Cement Sprayer Helper present for the exam: Cheyanne Allen RN Cervix: Fingertip/50/-3 Membrane status: Intact Uterus: 35cm Weeks Assessment/Plan Supervision of high risk , antepartum (primary encounter diagnosis) History of delivery, currently Grand multiparity Comment: Routine Visit Plan: CBC WITH DIFF, GROUP B STREPTOCOCCUS BY PCR, CBC WITH DIFFERENTIAL, POCT URINALYSIS W/O SPECIFIC GRAVITY Denies zika virus risk, signs and symptoms [...] 50% of the visit time. ROSIE Olivo 05/14/2019 1:57 PM documented in this encounter Plan of Treatment Date Type Specialty Care Team Description 05/21/2019 Routine Visit OB Satellites Giuliano Boyce, CONTACT PERSON [address] [place] [address] [phone] Name Type Priority Associated Diagnoses Date/Time CBC WITH DIFF LAB Routine Supervision of high risk 05/14/2019 1:32 PM , antepartum CANNON PINION ADJUSTER GROUP B STREPTOCOCCUS BY LAB Routine Supervision of high risk 05/14/2019 1 :32 PM PCR , antepartum CANNON PINION ADJUSTER CBC WITH DIFFERENTIAL LAB Routine Supervision of high risk 05/14/2019 1: 32 PM , antepartum CANNON PINION ADJUSTER Health Maintenance Due Date Last Done Comments [...] Priority Date/Time Associated Diagnosis Comments POCT URINALYSIS W/O Routine 05/14/2019 1:41 Supervision of high Results for this SPECIFIC GRAVITY PM CANNON PINION ADJUSTER risk , procedure are in antepartum the results section. documented in this encounter Results POCT URINALYSIS W/O SPECIFIC GRAVITY (05/14/2019 1:41 PM CANNON PINION ADJUSTER) POCT PH U 7 5 - 8 mg/dl POCT U LEUK EST 2+ Negative - Negative POCT U NIT neg Negative - Negative POCT U PROT trace Negative - Negative POCT U GLU neg Negative - Negative POCT U KETONE neg Negative - Negative POCT U BLD neg Negative - Negative Specimen Urine - URINE, CLEAN CATCH documented in this encounter Visit Diagnoses Diagnosis Supervision of high risk , antepartum - Primary History of delivery, currently with history of pre-term labor Grand multiparity documented in this encounter Insurance Payer Benefit Plan / Subscriber ID Effective Phone Address Type Group Dates [facility] xxxxxxxxx 2019-Pres [address] Medicaid HEALTH CHOICE - HEALTH CHOICE ent [id number] MANAGED MEDICAID [place]ICA[place] [id number] (Home) [address] [facility] [address], ([place]) [place] [address] documented as of this encounter
--- OUTSIDE RECORDS SUMMARY | 2019-06-29 20:25 | XMS REPORT | Summary of Care ---
:1990 Author Organization [facility] Address [address] [place] [address] Care Team Providers Name Role Phone Giuliano Boyce [facility] Primary Care Provider Reason for Visit Reason Comments Abnormal Lab Anemia Encounter Details Date Type Department Care Team Description [facility], [facility]normal Lab ( An[facility]) [facility] [address] [facility] [address] [place], [place] [phone] Allergies No Known Allergiesdocumented as of this encounter (statuses as of 05/18/2019) Medications Medication Sig Dispensed Refills Start Date End Date Status vit Take 1 Packet by 30 Each 6 03/31/2019 Active 48-dbqe-szigq-dha mouth daily. (SELECT-OB + DHA) 29 mg [...] as of this encounter (statuses as of 05/18/2019) Active Problems Problem Noted Date of child 04/29/2019 Maternal varicella, non-immune 04/01/2019 Overview: Address in Supervision of high risk , antepartum 03/31/2019 Grand multiparity 10/17/2015 Overview: Plans IUD pp History of delivery, currently 10/17/2015 Estimated Date of Delivery Comments Yes 06/10/2019 Based on last menstrual period of 09/03/2018 (Exact Date) documented as of this encounter (statuses as of 05/18/2019) Resolved Problems Problem Noted Date Resolved Date [...] as of this encounter (statuses as of 05/18/2019) Immunizations Name Administration Dates Next Due TDAP [...] of this encounter Last Filed Vital Signs Not on filedocumented in this encounter Plan of Treatment Date Type Specialty Care Team Description 05/21/2019 Routine Visit OB Satellites Giuliano Boyce, BLOCK CABLEMAN [address] [place] [address] [phone] Health Maintenance Due Date Last Done Comments [...] this topic documented as of this encounter Results Not on filedocumented in this encounter Visit Diagnoses Diagnosis Anemia of mother in , antepartum - Primary Anemia, antepartum documented in this encounter Insurance Payer Benefit Plan / Subscriber ID Effective Phone Address Type Group Dates [facility] xxxxxxxxx 2019-Pres [address] Medicaid HEALTH CHOICE - HEALTH CHOICE [facility] [id number] MANAGED MEDICAID [place], [place] MEDICAID [phone] documented as of this encounter
--- OUTSIDE RECORDS SUMMARY | 2019-06-29 20:25 | XMS REPORT | Summary of Care ---
:1990 Author Organization [facility] Address [address] [place] [address] Care Team Providers Name Role Phone Giuliano Boyce [facility] Primary Care Provider Reason for Visit Reason Comments Abnormal Lab Anemia Encounter Details Date Type Department Care Team Description [facility] ( Anemia) [facility] [address] [facility] [address] [place], [place] [phone] Allergies No Known Allergiesdocumented as of this encounter (statuses as of 05/18/2019) Medications Medication Sig Dispensed Refills Start Date End Date Status vit Take 1 Packet by 30 Each 6 03/31/2019 Active 16-zlwq-qvwod-dha mouth daily. (SELECT-OB + DHA) 29 mg [...] 05/21/2019 Routine Visit OB Satellites Giuliano Boyce, FLOOR ASSOCIATE [address] [place] [address] [phone] Health Maintenance Due Date Last Done Comments [...] ID Effective Phone Address Type Group Dates [facility] xxxxxxxxx 2019-Pres [address] Medicaid HEALTH CHOICE - HEALTH CHOICE [facility] [id number] MANAGED MEDICAID [place], [place] MEDICAID [phone] documented as of this encounter
--- OUTSIDE RECORDS SUMMARY | 2019-06-29 20:26 | XMS REPORT | Summary of Care ---
:1990 Author Organization [facility] Address [address] [place] [address] Care Team Providers Name Role Phone Giuliano Boyce SAP BW CONSULTANT Primary Care Provider Reason for Visit Reason Comments Other needs breast pump Encounter Details Date Type Department Care Team Description 05/31/2019 Telephone [facility]- Giuliano Boyce, Other (needs breast Volin SAP BW CONSULTANT pump) [address] [facility] [address] [place], [place] [phone] Allergies No Known Allergiesdocumented as of this encounter (statuses as of 05/31/2019) Medications Medication Sig Dispensed Refills Start Date End Date Status vitamin w/FA Take 1 tablet by 100 tablet 3 05/29/2019 Active tabletIndications: mouth daily. (spontaneous vaginal delivery) docusate calcium 240 Take 1 capsule by 60 capsule 1 05/29/2019 Active mg mouth once daily capsuleIndications: as needed for (spontaneous Constipation. vaginal delivery) ferrous sulfate 325 Take 1 tablet by 60 tablet 2 05/29/2019 Active mg (65 mg iron) mouth 2 (two) tabletIndications: times daily. (spontaneous vaginal delivery) ibuprofen 600 mg Take 1 tablet by 60 tablet 1 05/29/2019 Active tabletIndications: mouth every 6 (spontaneous (six) hours as vaginal delivery) needed (Pain). Take with food or milk. HYDROcodone-acetamino Take 1 tablet by 5 tablet 0 05/29/2019 Active phen 5-325 mg mouth every 6 tabletIndications: (six) hours as S/P tubal ligation needed for Pain (scale 7-10). documented as of this encounter (statuses as of 05/31/2019) Active Problems Problem Noted Date (spontaneous vaginal delivery) 05/29/2019 Anemia, 05/29/2019 S/P tubal ligation 05/29/2019 Single live 05/29/2019 38 weeks gestation of 05/27/2019 Decreased movements in third trimester 05/27/2019 IUGR (intrauterine growth restriction) affecting care of mother, third 2019 trimester, not applicable or unspecified fetus Decreased movement affecting management of in third 05/27/2019 trimester, not applicable or unspecified fetus Obesity (BMI 30-39.9) 05/27/2019 of child 04/29/2019 Maternal varicella, non-immune 04/01/2019 Overview: Address in Supervision of high risk in third trimester 03/31/2019 Grand multiparity 10/17/2015 Overview: Plans IUD pp History of delivery, currently 10/17/2015 Estimated Date of Delivery Comments Yes 06/10/2019 Based on last menstrual period of 09/03/2018 (Exact Date) documented as of this encounter (statuses as of 05/31/2019) Resolved Problems Problem Noted Date Resolved Date [...] as of this encounter (statuses as of 05/31/2019) Immunizations Name Administration Dates Next Due TDAP [...] Treatment Date Type Specialty Care Team Description 06/21/2019 Routine Visit OB Satellites Giuliano Boyce, SAP BW CONSULTANT [address] [place], [place] [id number] Health Maintenance Due Date Last Done Comments [...] filedocumented in this encounter Visit Diagnoses Diagnosis Supervision of high risk in third trimester - Primary Unspecified high-risk documented in this encounter Insurance Payer Benefit Plan / Subscriber ID Effective Phone Address Type Group Dates [facility] xxxxxxxxx 2019-Pres [address] Medicaid HEALTH CHOICE - HEALTH CHOICE ent [id number] MANAGED MEDICAID [place], [place] MEDICAID [phone] documented as of this encounter
--- OUTSIDE RECORDS SUMMARY | 2019-06-29 20:26 | XMS REPORT | Summary of Care ---
:1990 Author Organization [facility] Address [address] [place] [address] Care Team Providers Name Role Phone Giuliano BoyceP Primary Care Provider Reason for Referral (Routine) Status Reason Specialty Diagnoses / Referred By Referred To Procedures Contact Contact New Request OB Satellites Diagnoses (spontaneous vaginal delivery) [place], [facility] DISCHARGE FOLLOW-UP: [facility] [address] [place] [phone] Reason for Visit Auth/Cert Status Reason Specialty Diagnoses / Referred By Contact Referred To Contact Procedures Obstetrics Diagnoses IOL Pelvic pain J7c [address] [place] [phone] Encounter Details Date Type Department Care Team Description 05/27/2019 - Hospital Encounter Mother Baby Unit Star Hendricks ( spontaneous 05/29/2019 (J7C) MD Ralf vaginal delivery) [address] [place] [address] [id number] [place] [phone] Allergies No Known Allergiesdocumented as of this encounter (statuses as of 05/29/2019) Medications Medication Sig Dispensed Refills Start Date End Date Status vitamin Take 1 tablet 100 tablet 3 05/29/2019 Active w/FA by mouth tabletIndications: daily. (spontaneous vaginal delivery) docusate calcium Take 1 capsule 60 capsule 1 05/29/2019 Active 240 mg by mouth once capsuleIndications daily as : (spontaneous needed for vaginal delivery) Constipation. ferrous sulfate Take 1 tablet 60 tablet 2 05/29/2019 Active 325 mg (65 mg by mouth 2 iron) (two) times tabletIndications: daily. (spontaneous vaginal delivery) ibuprofen 600 mg Take 1 tablet 60 tablet 1 05/29/2019 Active tabletIndications: by mouth every (spontaneous 6 (six) hours vaginal delivery) as needed (Pain). Take with food or milk. HYDROcodone-acetam Take 1 tablet 5 tablet 0 05/29/2019 Active inophen 5-325 mg by mouth every tabletIndications: 6 (six) hours S/P tubal ligation as needed for Pain (scale 7-10). vit Take 1 Packet 30 Each 6 03/31/2019 05/29/2019 Discontinued 83-fkxs-lqlni-dha by mouth (SELECT-OB + DHA) daily. 29 mg iron-1 mg -250 mg combo packIndications: Supervision of high risk , antepartum documented as of this encounter (statuses as of 05/29/2019) Active Problems Problem Noted Date (spontaneous vaginal [...] as of this encounter (statuses as of 05/29/2019) Resolved Problems Problem Noted Date Resolved Date [...] as of this encounter (statuses as of 05/29/2019) Immunizations Name Administration Dates Next Due TDAP [...] Sign Reading Time Taken Comments Blood Pressure 107/70 05/29/2019 8:00 AM ENTERTAINMENT PRODUCTION PROFESSIONAL Pulse 77 05/29/2019 8:00 AM ENTERTAINMENT PRODUCTION PROFESSIONAL Temperature 36.9 C (98.4 F) 05/29/2019 8:00 AM ENTERTAINMENT PRODUCTION PROFESSIONAL Respiratory Rate 18 05/29/2019 8:00 AM ENTERTAINMENT PRODUCTION PROFESSIONAL Oxygen Saturation 99% 05/29/2019 8:00 AM ENTERTAINMENT PRODUCTION PROFESSIONAL Inhaled Oxygen Concentration - - Weight 72.1 kg (159 lb) 05/27/2019 3:55 PM ENTERTAINMENT PRODUCTION PROFESSIONAL Height 154.9 cm (5' 1") 05/27/2019 3:55 PM ENTERTAINMENT PRODUCTION PROFESSIONAL Body Mass Index 30.04 05/27/2019 3:55 PM ENTERTAINMENT PRODUCTION PROFESSIONAL documented in this encounter Discharge Instructions AttachmentsThe following attachments cannot be sent through Care Everywhere., Breast Care After (Finnish)Vaginal , After a (Finnish) documented in this encounter Progress Notes René Balderas MD - 05/28/2019 3:45 AM CSTOb Progress Note S/p still desires BTL René Balderas MD ritta Mello MD - 05/27/2019 4:47 PM CST BTL COUNSELING NOTE Raissa Goel is a @ 38w0d presenting for IOL "I counseled the patient regarding incentives, risks, benefits and alternatives of Bilateral Tubal Ligation including: risk of infection, bleeding, need for transfusion of blood/blood products, injury to ureter, bladder, bowel with possible further surgery, stint, catheterization or colostomy to repair. The permanence of this procedure and risk of regret in 1 in 3 women were discussed. tubal ligation failure rate is 0.75% and higher in women younger than 30 years old. There is an increased risk for ectopic and the need to seek medical attention should failure of tubal ligation occur. Alternatives discussed include: Oral Contraceptive Agents, Intrauterine Device, Depo Provera, Ring, Patch, Condoms/foam, interval bilateral tubal ligation, or vasectomy of partner. Allquestions answered, and patient expressed her desire to proceed with bilateral tubal ligation surgery." HGB (g/dL) Date Value 05/14/2019 9.4 (L) HCT (%) Date Value 05/14/2019 30.9 (L) PLT (10*3/L) Date Value 05/14/2019 249 Previous abdominal surgery: Past Surgical History: Procedure Laterality Date DELIVER PLACENTA 12/09/2015 DILATION AND CURETTAGE (SHX) 2016 remove left over placentae MONITOR W/REPORT 12/09/2015 OBSTETRICAL CARE,VAG DELIV ONLY 12/09/2015 OXYTOCIN INDUCTION/AUGMENTATION REFERENCE LINK ORDER 12/09/2015 REPAIR VAGINA/PERINEUM 12/09/2015 No Known Allergies Britta Mello MD PGY-2, Department of Obstetrics and Gynecology Pager# [phone] signed by Britta Mello MD at 05/27/2019 6:11 PM CSTdocumented in this encounter Plan of Treatment Date Type Specialty Care Team Description 06/21/2019 Routine Visit OB Satellites Giuliano Boyce, LINE INSTALLATION SUPERVISOR [address] [place] [address] [phone] Name Type Priority Associated Diagnoses Date/Time SURGICAL PATHOLOGY EXAM LAB STAT 05/28/2019 7:05 AM ENTERTAINMENT PRODUCTION PROFESSIONAL Name Type Priority Associated Diagnoses Order Schedule SURGICAL PATHOLOGY EXAM LAB Routine ONCE for 1 Occurrences starting 05/28/2019, 1 completed Health Maintenance Due Date Last Done Comments [...] encounter Procedures Procedure Name Priority Date/Time Associated Comments Diagnosis CBC WITH DIFFERENTIAL Routine 05/29/2019 3:43 Results for this AM ENTERTAINMENT PRODUCTION PROFESSIONAL procedure are in the results section. CBC WITH DIFFERENTIAL Routine 05/29/2019 3:43 Results for this AM ENTERTAINMENT PRODUCTION PROFESSIONAL procedure are in the results section. VENOUS CORD GAS PÉREZ 05/28/2019 3:42 Results for this AM ENTERTAINMENT PRODUCTION PROFESSIONAL procedure are in the results section. ARTERIAL CORD GAS PÉREZ 05/28/2019 3:42 Results for this AM ENTERTAINMENT PRODUCTION PROFESSIONAL procedure are in the results section. GALV ONLY - SYPHILIS PÉREZ 05/27/2019 5:12 Results for this IGG/IGM PM ENTERTAINMENT PRODUCTION PROFESSIONAL procedure are in the results section. HEPATITIS B SURFACE PÉREZ 05/27/2019 5:12 Results for this ANTIGEN PM ENTERTAINMENT PRODUCTION PROFESSIONAL procedure are in the results section. RHO (D) IMMUNE Routine 05/27/2019 4:36 Results for this GLOBULIN PM ENTERTAINMENT PRODUCTION PROFESSIONAL procedure are in the results section. HB ABO GROUPING PÉREZ 05/27/2019 4:36 Results for this PM ENTERTAINMENT PRODUCTION PROFESSIONAL procedure are in the results section. documented in this encounter Results CBC WITH DIFFERENTIAL (05/29/2019 3:43 AM ENTERTAINMENT PRODUCTION PROFESSIONAL) WBC 14.01 (H) 4.30 - 11.10 [facility] 10*3/L SERVICES RBC 3.81 (L) 3.93 - 5.25 [facility] 10*6/L SERVICES HGB 8.3 (L) 11.6 - 15.0 [facility] g/dL SERVICES HCT 27.8 (L) 35.7 - 45.2 % [facility] SERVICES MCV 73.0 (L) 80.6 - 95.5 fL [facility] MCH 21.8 (L) 25.9 - 32.8 pg [facility] MCHC 29.9 (L) 31.6 - 35.1 [facility] g/dL SERVICES RDW-SD 40.4 39.0 - 49.9 fL [facility] RDW-CV 15.5 12.0 - 15.5 % [facility] PLT 218 166 - 358 [facility] 10*3/L SERVICES MPV 10.8 9.5 - 12.9 fL [facility] SERVICES NRBC/100 WBC 0.0 0.0 - 10.0 /100 [facility] WBCs SERVICES NRBC x10^3 <0.01 10*3/L [facility] GRAN MAT (NEUT) % 70.8 % [facility] IMM GRAN % 0.80 % [facility] LYMPH % 16.0 % [facility] MONO % 11.1 % [facility] EOS % 1.1 % [facility] BASO % 0.2 % [facility] GRAN MAT x10^3(ANC) 9.92 (H) 1.88 - 7.09 [facility] 10*3/uL SERVICES IMM GRAN x10^3 0.11 (H) 0.00 - 0.06 [facility] 10*3/uL SERVICES LYMPH x10^3 2.24 1.32 - 3.29 [facility] 10*3/uL SERVICES MONO x10^3 1.56 (H) 0.33 - 0.92 [facility] 10*3/uL SERVICES EOS x10^3 0.15 0.03 - 0.39 [facility] 10*3/uL SERVICES BASO x10^3 0.03 0.01 - 0.07 [facility] 10*3/uL SERVICES Specimen Blood - ARM, RIGHT Performing Organization Address [facility]/Zipcode Phone Number [facility] CLIA: [id number], [address] [place] [address] [facility] ARTERIAL CORD GAS (05/28/2019 3:42 AM ENTERTAINMENT PRODUCTION PROFESSIONAL) BASE EXCESS, CORD -2.3 mEq/L [facility] AC PH, CORD (BEAKER) 7.28 7.18 - 7.38 [facility] PC02, CORD 56 32 - 66 mmHg [facility] PO2, CORD 17 10 - 30 mmHg [facility] BICARBONATE, CORD 26 17 - 27 mEq/L [facility] Specimen Blood - CORD Performing Organization Address [facility] Phone Number [facility] CLIA: [id number], [address] [place] [address] [facility] VENOUS CORD GAS (05/28/2019 3:42 AM ENTERTAINMENT PRODUCTION PROFESSIONAL) VENOUS BASE EXCESS, -0.4 mEq/L [facility] CORD SERVICES VENOUS PH, CORD 7.37 7.25 - 7.45 [facility] VENOUS PC02, CORD 44 27 - 49 mmHg [facility] VENOUS PO2, CORD 32 17 - 41 mmHg [facility] VENOUS BICARBONATE, 25 12 - 29 mEq/L [facility] CORD SERVICES Specimen Blood - CORD Performing Organization Address City/[facility] Centercode Phone Number [facility] CLIA: [id number], [address] [place], [place] [address] [facility] GALV ONLY - SYPHILIS IGG/IGM (05/27/2019 5:12 PM ENTERTAINMENT PRODUCTION PROFESSIONAL) Syphilis IgG/IgM Non-reactive Non-reactive [facility] Specimen Blood - VENOUS Narrative Performed At [facility] Non-reactive - No serologic evidence of T. pallidum infection. Cannot exclude incubating or early syphilis. Submit a second specimen in 2-4 weeks if syphilis is clinically suspected. Equivocal - Further testing to follow. Reactive - Further testing to follow. Performing Organization Address City/State/Zipcode Phone Number [facility] CLIA: [id number], [address] [place] [address] [facility] Hepatitis B Surface Antigen (05/27/2019 5:12 PM ENTERTAINMENT PRODUCTION PROFESSIONAL) HBsAg Negative Negative [facility] HBsAg 0.04 [facility] Semi-Quantitative SERVICES Specimen Blood - ARM, LEFT Performing Organization Address City/[facility]/Zipcode Phone Number [facility] CLIA: [id number], [address] [place] [address] [facility] RHO (D) IMMUNE GLOBULIN (05/27/2019 4:36 PM ENTERTAINMENT PRODUCTION PROFESSIONAL) Pathologist [facility] RHIG CANDIDATE? No- see comment LAB Comment: Patient is not a candidate for RhIg- Patient is Rh Positive. Performed at [facility] Laboratory Services - [facility] Blood [place] [address] Toll Free: [phone] CLIA No. [id number] Specimen Blood - VENOUS Performing Organization Address [facility] Phone Number BLD LAB Type and Screen - ONCE PÉREZ (05/27/2019 4:36 PM ENTERTAINMENT PRODUCTION PROFESSIONAL) Pathologist [facility] ABO & RH AB POSITIVE LAB Comment: Performed at [facility] Laboratory Services - [place] [address] Toll Free: [phone] CLIA No. [id number] IAT Negative LAB Comment: Performed at [facility] Laboratory Services - [facility] Blood [place] [address] Toll Free: [phone] CLIA No. [id number] Specimen Blood - VENOUS Performing Organization Address City/[facility]/Zipcode Phone Number BLD LAB documented in this encounter Visit Diagnoses Diagnosis (spontaneous vaginal delivery) - Primary Normal delivery S/P tubal ligation Tubal ligation status Maternal varicella, non-immune Supervision of other high-risk Anemia, Single live documented in this encounter Administered Medications Medication Order MAR Action Action Date Dose Rate Site acetaminophen (TYLENOL) tablet Given 05/28/2019 9:58 AM ENTERTAINMENT PRODUCTION PROFESSIONAL 650 mg 650 mg 650 mg, Oral, Q6HPRN, Starting Fri05/28/19 at 0346, Until Discontinued, Routine, Pain (scale 4-6) D5W-LR IV infusion 1,000 mL New Bag 05/27/2019 5:14 PM ENTERTAINMENT PRODUCTION PROFESSIONAL 1,000 mL 125 mL/hr at 125 mL/hr, IV Infusion, CONTINUOUS, Starting Neda 05/27/19 at 1615, Until Discontinued, Routine docusate calcium (SURFAK) capsule 240 mg Given 05/28/2019 12:17 PM ENTERTAINMENT PRODUCTION PROFESSIONAL 240 mg 240 mg, Oral, QDAILYPRN, Starting Fri05/28/19 at 1021, Until Discontinued, Routine, Constipation HYDROcodone-acetaminophen (NORCO 5) 5-325 Given 05/29/2019 10:08 AM ENTERTAINMENT PRODUCTION PROFESSIONAL 1 tablet mg tablet 1 tablet 1 tablet, Oral, Q6HPRN, Starting Fri05/28/19 at 1413, Until Discontinued, Routine, Pain (scale 7-10) Given 05/29/2019 3:47 AM ENTERTAINMENT PRODUCTION PROFESSIONAL 1 tablet Given 05/28/2019 9:27 PM ENTERTAINMENT PRODUCTION PROFESSIONAL 1 tablet ibuprofen (IBU) tablet 600 mg Given 05/29/2019 6:00 AM ENTERTAINMENT PRODUCTION PROFESSIONAL 600 mg 600 mg, Oral, Q6HPRN, Starting Fri05/28/19 at 1021, Until Discontinued, Routine, Pain (scale 4-6) Given 05/29/2019 12:05 AM ENTERTAINMENT PRODUCTION PROFESSIONAL 600 mg Given 05/28/2019 6:14 PM ENTERTAINMENT PRODUCTION PROFESSIONAL 600 mg lactated ringers IV infusion 500 New Bag 05/28/2019 1:42 AM ENTERTAINMENT PRODUCTION PROFESSIONAL 500 mL 999 mL/hr mL at 999 mL/hr, 500 mL, IV Infusion, PRN - SEE INSTRUCTIONS, Starting [facility] 05/27/19 at 1604, Until Discontinued, Routine lactated ringers IV infusion 500 mL at 999 mL/hr, 500 mL, IV Infusion, PRN - SEE INSTRUCTIONS, 1 dose, Starting Fri05/28/19 at 0148, Until Discontinued, Routine lidocaine 1% (PF) (XYLOCAINE) injection 0.3 mL 0.3 mL, Infiltration, PRN - SEE INSTRUCTIONS, Starting [facility] 05/27/19 at 1604, Until Discontinued, Routine, Local anesthesia, For IV line placement only as a local anesthetic. lidocaine 1% (XYLOCAINE) 10 mg/mL (1 %) injection 30 mL 30 mL, Infiltration, PRN - SEE INSTRUCTIONS, Starting Neda 05/27/19 at 1604, Until Discontinued, Routine, Local anesthesia, For laceration repair only as a local anesthetic as indicated. LR 1000 mL + oxytocin 20 Rate Change 05/27/2019 8:00 PM 6 jacqueline-units/min 18 mL/hr units IV Solution ENTERTAINMENT PRODUCTION PROFESSIONAL 2 jacqueline-units/min (6 mL/hr), at 6 mL/hr, IV Infusion, TITRATE, Starting Neda 05/27/19 at 1605, Until Discontinued, PÉREZ, Oxytocin induction. Rate Change 05/27/2019 7:30 PM ENTERTAINMENT PRODUCTION PROFESSIONAL 4 jacqueline-units/min 12 mL/hr New Bag 05/27/2019 6:07 PM ENTERTAINMENT PRODUCTION PROFESSIONAL 2 jacqueline-units/min 6 mL/hr magnesium hydroxide (MILK OF MAGNESIA) 400 Given 05/29/2019 6:00 AM ENTERTAINMENT PRODUCTION PROFESSIONAL 30 mL mg/5 mL suspension 30 mL 30 mL, Oral, QDAILYPRN, Starting Fri05/28/19 at 1021, Until Discontinued, Routine, Constipation Given 05/28/2019 12:17 PM ENTERTAINMENT PRODUCTION PROFESSIONAL 30 mL naloxone (NARCAN) injection 0.4 mg 0.4 mg, Slow IV Push, PRN - SEE INSTRUCTIONS, Starting Fri05/28/19 at 0852, Until 05/30/19 at 0851, Routine, Analgesia Recovery, PACU simethicone (GAS RELIEF (SIMETHICONE)) Given 05/29/2019 6:00 AM ENTERTAINMENT PRODUCTION PROFESSIONAL 160 mg chewable tablet 160 mg 160 mg, Oral, PC+HSPRN, Starting Fri05/28/19 at 1021, Until Discontinued, Routine, Gas Given 05/28/2019 6:14 PM ENTERTAINMENT PRODUCTION PROFESSIONAL 160 mg Given 05/28/2019 12:17 PM ENTERTAINMENT PRODUCTION PROFESSIONAL 160 mg sodium citrate-citric acid (BICITRA) 500-334 mg/5 mL solution 30 mL 30 mL, Oral, PRE-PROCEDURE ONCE, 1 dose, Starting Neda 05/27/19 at 1604, Until Discontinued, Routine, Surgery/Procedure Medication Order MAR Action Action Date Dose Rate Site ketorolac (TORADOL) injection Given 05/28/2019 9:04 AM ENTERTAINMENT PRODUCTION PROFESSIONAL 30 mg Right Leg 30 mg 30 mg, Intramuscular, ONCE, 1 dose, Fri05/28/19 at 0900, Routine, PACU, multiple launch rocket system crewmember approving Restricted medication: LD PACU lactated ringers IV infusion 500 New Bag 05/28/2019 3:26 AM ENTERTAINMENT PRODUCTION PROFESSIONAL 500 mL 999 mL/hr mL at 999 mL/hr, 500 mL, IV Infusion, ONCE, 1 dose, 05/28/19 at 0300, Routine LR 1000 mL + oxytocin 20 units IV Given 05/28/2019 3:40 AM ENTERTAINMENT PRODUCTION PROFESSIONAL 999 mL/hr Solution at 999 mL/hr, IV Infusion, ONCE, 1 dose, 05/28/19 at 0500, Routine sodium citrate-citric acid (BICITRA) 500-334 Given 05/28/2019 1:42 AM ENTERTAINMENT PRODUCTION PROFESSIONAL 30 mL mg/5 mL solution 30 mL 30 mL, Oral, PRE-PROCEDURE ONCE, 1 dose, Starting Neda 05/27/19 at 1604, Until Fri05/28/19 at 0142, Routine, Surgery/Procedure sodium citrate-citric acid (BICITRA) 500-334 Given 05/28/2019 6:32 AM ENTERTAINMENT PRODUCTION PROFESSIONAL 30 mL mg/5 mL solution 30 mL 30 mL, Oral, PRE-PROCEDURE ONCE, 1 dose, Starting Fri05/28/19 at 0148, Until Fri05/28/19 at 0632, Routine, Surgery/Procedure documented in this encounter Insurance Payer Benefit Plan / Subscriber ID Effective Phone Address Type Group [facility] xxxxxxxxx 2019-Pres [address] Medicaid HEALTH CHOICE - HEALTH CHOICE [facility] [id number] MANAGED MEDICAID [place], [place]ICAID [phone] (Home) [address] [facility] [place] ([place]) [place] [id number] documented as of this encounter
--- OUTSIDE RECORDS SUMMARY | 2019-06-29 20:26 | XMS REPORT | Summary of Care ---
:1990 Author Organization [facility] Address [address] [place] [address] Care Team Providers Name Role Phone Giuliano Boyce [facility] Primary Care Provider Reason for Visit Reason Comments Care (Routine) Status Reason Specialty Diagnoses / Referred By Referred To Procedures Contact Contact New Request OB Satellites Diagnoses (spontaneous vaginal delivery) Frazier, Procedures DISCHARGE FOLLOW-UP: [facility] Maria G Swain [address] [place] [address] Encounter Details Date Type Department Care Team Description 06/21/2019 Routine [facility]- Giuliano Boyce care and Visit ROSIE Castillo examination of [address] [place] [address] lactating mother [place], [place] (Primary Dx) [id number] [place], [place] [phone] [address] [phone] Allergies No Known Allergiesdocumented as of this encounter (statuses as of 06/21/2019) Medications Medication Sig Dispensed Refills Start Date [...] as of this encounter (statuses as of 06/21/2019) Active Problems Problem Noted Date care and examination of lactating mother 06/21/2019 (spontaneous vaginal delivery) 05/29/2019 Anemia, 05/29/2019 S/P [...] IUD pp History of delivery, currently 10/17/2015 documented as of this encounter (statuses as of 06/21/2019) Resolved Problems Problem Noted Date Resolved Date [...] as of this encounter (statuses as of 06/21/2019) Immunizations Name Administration Dates Next Due TDAP (ADACEL) VACCINE 03/31/2019 Tdap 11/13/2015 documented as of this encounter Social History Tobacco Use Types Packs/Day Years Used Date Never Smoker Smokeless Tobacco: Never Used Comments: not a smoker Alcohol Use Drinks/Week oz/Week Comments No 0 Standard drinks or equivalent 0.0 Sex Assigned at Date Recorded Not on file Job Start Date Occupation Industry Not on file Not on file Not on file Travel History Travel Start Travel End No recent travel history available. documented as of this encounter Last Filed Vital Signs Vital Sign Reading Time Taken Comments Blood Pressure 128/81 06/21/2019 10:51 AM IN HOME AIDE Pulse 76 06/21/2019 10:51 AM IN HOME AIDE Temperature 37.1 C (98.7 F) 06/21/2019 10:51 AM IN HOME AIDE Respiratory Rate 16 06/21/2019 10:51 AM IN HOME AIDE Oxygen Saturation - - Inhaled Oxygen Concentration - - Weight 66 kg (145 lb 9 oz) 06/21/2019 10:51 AM IN HOME AIDE Height 154.9 cm (5' 1") 06/21/2019 10:51 AM IN HOME AIDE Body Mass Index 27.5 06/21/2019 10:51 AM IN HOME AIDE documented in this encounter Progress Notes Giuliano Boyce, HIDE SORTER - 06/21/2019 10:15 AM CST Chief complaint: Chief Complaint Patient presents with Care HPI The patient is here for a routine PP visit. Patient delivered male infant via on 05/28/2019. She has no complaints today. She states that she is and formula feeding her , is bonding well, and coping well with less sleep. She reports that she has no pain, small lochia, and denies all s/s of PP depression. She had BTL for PP contraception. Histories OB History Para Term AB Living 9 5 4 1 2 4 SAB TAB Ectopic Multiple Live Births 2 0 0 0 5 # Outcome Date GA Lbr Donell/2nd Weight Sex Delivery Anes PTL Lv 9 8 SAB 03/2018 13w0d 7 Term 12/09/15 [...] REFERENCE LINK ORDER 12/09/2015 REPAIR VAGINA/PERINEUM 12/09/2015 TUBAL LIGATION 05/28/2019 TUBAL LIGATION N/A 05/28/2019 Surgeon: Cherie Crowley MD; Location: Labor and Delivery [facility] [place] Social History Socioeconomic History Marital status: Spouse [...] file Gets together: Not on file Attends lutheran service: Not on file Active member of [...] Asked Social History Narrative Pt states her lutheran preference is Oriental Orthodox Patient lives with four daughters and a friend. Patient has no cats in the home. Social History Substance and Sexual Activity Sexual Activity Yes Partners: Male control/protection: None Comment: last sexual intercourse 09/2018 Labs No new labs Radiology No new radiology. Allergies Raissa has No Known Allergies. Medications Raissa has a current medication list which includes the following prescription( s): docusate calcium, ferrous sulfate, hydrocodone-acetaminophen, ibuprofen, and vitamin w/fa. Review of Systems Constitutional: Negative for activity [...] intolerance, weight gain and weight loss. BP 128/81 (BP Location: Right arm, Patient Position: Sitting, BP CUFF SIZE: Adult Medium) | Pulse 76 | Temp 37.1 C (98.7 F) (Oral) | Resp 16 | Ht 5 ' 1" (1.549 m) | Wt 145 lb 9 oz (66 kg) | LMP 09/03/2018 (Exact Date) | Unknown | BMI 27.50 kg/m Pregravid BMI: Could not be calculated [...] lesion, no rash and no ulceration present. Lower transverse incision noted, incision dry and healing well. Breast: Normal left breast and normal right breast Rectal: normal rectum External genitalia: Normal external genitalia appropriate for age. Assessment/Plan care and examination of lactating mother (primary encounter diagnosis) Comment: Routine PPE Plan: Denies zika virus risk, signs and symptoms such as fever,rash,joint pain, conjunctivitis (red eyes), muscle pain, headaches; outside [place] travel to areas affected by zika, and FOB exposure to zika.Educated on use of mosquito repellent. Return to clinic in 3 weeks. Discussed treatment options. Medications as ordered. Reviewed patient instructions and provided printed copy. This visit did not involve counseling and coordination that comprised more than 50% of the visit time. ROSIE Olivo 06/21/2019 12:07 PM Cheyanne Reilly RN - 06/21/2019 10:15 AM CSTPt in clinic today for 3 wk pp visit. 1) Delivery method vaginal 2) Patient delivered on 05/28/2019 at [place] 3) Patient is currently /bottlefeeding 4) Desired BCM: BTL 5) Patient denies pp depression Lochia: stopped bleeding C/O: BTL incision is still hurting, 07/05 documented in this encounter Plan of Treatment Date Type Specialty Care Team Description 07/12/2019 Office Visit OB Satellites Giuliano Boyce FNP [address] [place] [address] [phone] Health Maintenance Due Date Last Done Comments [...] filedocumented in this encounter Visit Diagnoses Diagnosis care and examination of lactating mother - Primary documented in this encounter Insurance Payer Benefit Plan / Subscriber ID Effective Phone Address Type Group Dates [facility] xxxxxxxxx 2019-Pres [address] Medicaid HEALTH CHOICE - HEALTH CHOICE [facility] [id number] MANAGED MEDICAID [place], [place] MEDICAID [phone] documented as of this encounter
--- OUTSIDE RECORDS SUMMARY | 2019-06-29 20:26 | XMS REPORT | Summary of Care ---
:1990 Author Organization [facility] Address [address] [place] [address] Care Team Providers Name Role Phone Giuliano Boyce DIRECTOR OF MIDWIFERY/STAFF MIDWIFE Primary Care Provider Reason for Visit Reason Comments Assessment Breast feeding, other children have the flu Encounter Details Date Type Department Care Team Description 06/11/2019 Telephone [facility]- Giuliano Boyce, Assessment ( Breast [facility][1]P feeding, other [address] children have the flu) [place], [place] [phone] Allergies No Known Allergiesdocumented as of this encounter (statuses as of 06/11/2019) Medications Medication Sig Dispensed Refills Start Date [...] as of this encounter (statuses as of 06/11/2019) Active Problems Problem Noted Date (spontaneous vaginal [...] as of this encounter (statuses as of 06/11/2019) Resolved Problems Problem Noted Date Resolved Date [...] as of this encounter (statuses as of 06/11/2019) Immunizations Name Administration Dates Next Due TDAP [...] 06/21/2019 Routine Visit OB Satellites Giuliano Boyce, DIRECTOR OF MIDWIFERY/STAFF MIDWIFE [address] [place], [place] [address] Health Maintenance Due Date Last Done Comments [...] Results Not on filedocumented in this encounter Insurance Payer Benefit Plan / Subscriber ID Effective Phone Address Type Group Dates [facility] [place]-Pres [address] Medicaid HEALTH CHOICE - HEALTH CHOICE [facility] [id number] MANAGED MEDICAID [place] [phone] documented as of this encounter
--- OUTSIDE RECORDS SUMMARY | 2019-06-29 20:27 | XMS REPORT | Summary of Care ---
:1990 Author Organization [facility] Address [address] [place] [address] Care Team Providers Name Role Phone Boyce, Giuliano MILANP Primary Care Provider Encounter Details Date Type Department Care Team Description 05/27/2019 Orders Only [facility] Doctor Unassigned, No [address] [facility] [place] [address] [address] [place] [address] Allergies No Known Allergiesdocumented as of this encounter (statuses as of 06/22/2019) Medications Medication Sig Dispensed Refills Start Date [...] as of this encounter (statuses as of 06/22/2019) Active Problems Problem Noted Date care and [...] IUD pp History of delivery, currently 10/17/2015 Comments Yes documented as of this encounter (statuses as of 06/22/2019) Resolved Problems Problem Noted Date Resolved Date [...] as of this encounter (statuses as of 06/22/2019) Immunizations Name Administration Dates Next Due TDAP (ADACEL) VACCINE 03/31/2019 Tdap 11/13/2015 documented as of this encounter Social History Tobacco Use Types Packs/Day Years Used Date Never Smoker Smokeless Tobacco: Never Used Comments: not a smoker Alcohol Use Drinks/Week oz/Week Comments No 0 Standard drinks or equivalent 0.0 Comments Yes Sex Assigned at Date Recorded Not on file Job Start Date Occupation Industry Not on file Not on file Not on file Travel History Travel Start Travel End No recent travel history available. 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 Medicaid HEALTH CHOICE - HEALTH CHOICE ent [id number] MANAGED MEDICAID [place], [place] MEDICAID [id number] documented as of this encounter
--- NOTE | 2019-06-29 22:46 | ER ---
Nurse's Notes [facility] Name: Raissa Goel Age: 29 yrs Sex: Female : 1990 Arrival Date: 06/29/2019 Time: 20:25 Bed 28 Private MD: Diagnosis: Acute upper respiratory infection, unspecified Presentation: 06/28 20:34 Chief complaint: Patient states: recently gave X 1 month ago, had a sore throat iw on Friday, fever and body aches started Friday, also started having chest pain ut thought it was because she stopped breast feeding, also has mild cough and burning with urination X 2 weeks, fever was 102 today took tylenol at 6 pm. Coronavirus screen: The patient has NOT traveled to [place] in the past 14 days. Proceed with normal triage procedures. The patient has NOT had contact with known and/or suspected case of Coronavirus. Proceed with normal triage procedures. Ebola Screen: Patient negative for fever greater than or equal to 101.5 degrees Fahrenheit, and additional compatible Ebola Virus Disease symptoms Patient denies exposure to infectious person. Patient denies travel to an Ebola-affected area in the 21 days before illness onset. No symptoms or risks identified at this time. Initial Sepsis Screen: Does the patient meet any 2 criteria? No. Patient's initial sepsis screen is negative. Does the patient have a suspected source of infection? No. Patient's initial sepsis screen is negative. Risk Assessment: Do you want to hurt yourself or someone else? Patient reports no desire to harm self or others. 20:34 Method Of Arrival: Ambulatory iw 20:34 Acuity: SENA 3 iw Triage Assessment: 21:32 General: Appears in no apparent distress. Behavior is calm, cooperative. Pain: Pain ls4 currently is 4 out of 10 on a pain scale. 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 - Social history:: Smoking status: Patient denies any tobacco usage or history of. Screenin:30 Abuse screen: Denies threats or abuse. Denies injuries from another. Nutritional ls4 screening: No deficits noted. Tuberculosis screening: No symptoms or risk factors identified. Fall Risk None identified. Vital Signs: 20:34 BP 106 / 68; Pulse 117; Resp 16 S; Temp 99.4; Pulse Ox 98% on R/A; Weight 67.13 kg; iw Height 5 ft. 1 in. (154.94 cm); Pain 4/10; 20:34 Body Mass Index 27.96 (67.13 kg, 154.94 cm) ED Course: 20:25 Patient arrived in ED. jg7 20:28 Jimenez Marlow PA is PHCP. cp 20:28 Ian Allen MD is Attending Physician. cp 20:37 Triage completed. iw 20:37 Arm band placed on. iw 21:30 Yuliana Sharpe, RN is Primary Nurse. ls4 21:30 Patient has correct armband on for positive identification. Bed in low position. Call ls4 light in reach. Side rails up X 1. 21:30 No provider procedures requiring assistance completed. Patient did not have IV access ls4 during this emergency room visit. 22:01 Influenza Screen (a \T\ B) Sent. ds4 22:01 Strep Sent. ds4 Administered Medications: No medications were administered Outcome: 22:46 Discharge ordered by MD. cp 23:23 Patient left the ED. jv1 Signatures: Jacinta Maxwell, RN RN Jamal Gomez ds4 Jimenez Marlow PA PA cp Vicente, Joyce, RN RN jv1 Yuliana Sharpe RN RN ls4 Denisha Collins jg7
--- NOTE | 2019-06-29 22:46 | EDPHYS ---
Physician Documentation [facility] Name: Raissa Goel Age: 29 yrs Sex: Female : 1990 Arrival Date: 06/29/2019 Time: 20:25 Bed 28 Private MD: ED Physician Ian Allen HPI: 06/28 21:10 This 29 yrs old Female presents to ER via Ambulatory with complaints of Flu cp Symptoms. 21:10 The patient or guardian reports cough, that is intermittent. cp 21:10 Onset: The symptoms/episode began/occurred yesterday. Severity of symptoms: in the cp emergency department the symptoms are unchanged, despite home interventions. Associated signs and symptoms: Pertinent positives: sore throat started 3 days ago, Pertinent negatives: chest pain, diarrhea, ear ache, fever, vomiting. 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 - Social history:: Smoking status: Patient denies any tobacco usage or history of. ROS: 21:15 Constitutional: Positive for body aches, Negative for fever, poor PO intake. cp 21:15 Eyes: Negative for injury, pain, redness, and discharge. cp 21:15 ENT: Positive for sore throat, Negative for drainage from ear(s), ear pain, difficulty swallowing, difficulty handling secretions. 21:15 Cardiovascular: Negative for chest pain, palpitations. 21:15 Respiratory: Positive for cough, Negative for shortness of breath, wheezing. 21:15 Abdomen/GI: Negative for abdominal pain, vomiting, diarrhea, constipation. 21:15 Skin: Negative for rash. 21:15 Neuro: Negative for altered mental status, headache, syncope, weakness. 21:15 All other systems are negative. Exam: 21:25 Constitutional: The patient appears in no acute distress, alert, awake, non-toxic, well cp developed, well nourished. 21:25 Head/Face: Normocephalic, atraumatic. cp 21:25 Eyes: Periorbital structures: appear normal, Conjunctiva: normal, no exudate, no injection, Lids and lashes: appear normal, bilaterally. 21:25 ENT: External ear(s): are unremarkable, Ear canal(s): are normal, clear, TM's: bulging, is not appreciated, bilaterally, dullness, bilaterally, erythema, is not appreciated, bilaterally, Nose: is normal, Mouth: Lips: moist, Oral mucosa: pink and intact, moist, Posterior pharynx: Airway: no evidence of obstruction, patent, Tonsils: are normal in appearance, swelling, is not appreciated, erythema, is not appreciated, exudate, is not appreciated. 21:25 Neck: ROM/movement: is normal, is supple, without pain, no range of motions limitations, no meningismus, Lymph nodes: no appreciated lymphadenopathy. 21:25 Chest/axilla: Inspection: normal, Palpation: is normal, no crepitus, no tenderness. 21:25 Cardiovascular: Rate: tachycardic, Rhythm: regular. 21:25 Respiratory: the patient does not display signs of respiratory distress, Respirations: normal, no use of accessory muscles, no retractions, no tachypnea, labored breathing, is not present, Breath sounds: are clear throughout, no decreased breath sounds, no stridor, no wheezing. 21:25 Abdomen/GI: Exam negative for discomfort, distension, guarding, Inspection: abdomen appears normal. 21:25 Skin: no rash present. Vital Signs: 20:34 BP 106 / 68; Pulse 117; Resp 16 S; Temp 99.4; Pulse Ox 98% on R/A; Weight 67.13 kg; iw Height 5 ft. 1 in. (154.94 cm); Pain 4/10; 20:34 Body Mass Index 27.96 (67.13 kg, 154.94 cm) iw MDM: 20:36 Patient medically screened. cp 22:00 Differential Diagnosis: Bronchitis Influenza Upper Respiratory Infection Otitis Media cp Viral Syndrome Pneumonia Other strep throat. 22:45 Data reviewed: vital signs, nurses notes, lab test result(s), and as a result, I will cp discharge patient. 22:45 Counseling: I had a detailed discussion with the patient and/or guardian regarding: the cp historical points, exam findings, and any diagnostic results supporting the discharge/admit diagnosis, lab results, to return to the emergency department if symptoms worsen or persist or if there are any questions or concerns that arise at home. 06/28 21:04 Order name: Strep cp 06/28 21:04 Order name: Influenza Screen (a \T\ B) cp 06/28 22:44 Order name: Throat Culture EDMS Administered Medications: No medications were administered Disposition: 06/29 03:12 Co-signature as Attending Physician, Ian Allen MD. rn Disposition: 06/29/19 22:46 Discharged to Home. Impression: Acute upper respiratory infection, unspecified. - Condition is Stable. - Discharge Instructions: Upper Respiratory Infection, Adult. - Medication Reconciliation Form, Thank You Letter, Antibiotic Education, Prescription Opioid Use form. - Follow up: Private Physician; When: 2 - 3 days; Reason: Worsening of condition. - Problem is new. - Symptoms are unchanged. Signatures: Dispatcher [employer] EDJacinta Corbin RN RN iw Nieto, Roman, MD MD rn Page, Corey, PA PA Malorie Dodd RN RN jv1 Corrections: (The following items were deleted from the chart) 06/28 23:23 22:46 06/29/2019 22:46 Discharged to Home. Impression: Acute upper respiratory jv1 infection, unspecified. Condition is Stable. Forms are Medication Reconciliation Form, Thank You Letter, Antibiotic Education, Prescription Opioid Use. Follow up: Private Physician; When: 2 - 3 days; Reason: Worsening of condition. Problem is new. Symptoms are unchanged. cp
[2019-06-30 01:56] VITALS: BP 106/68; TEMP 99.4; O2SAT 98
== END 2019-06-29 23:23 | disposition home or self-care (01) ==
LOC: ER 20:23
DX: J06.9 Acute upper respiratory infection, unspecified (principal)
CPT/HCPCS: 87070; 87081; 87804; 99282

== ENCOUNTER 2021-01-27 19:43 | Emergency (ER) | payer OTHER ==
--- NOTE | 2021-01-27 20:36 | RAD REPORT ---
EXAM DESCRIPTION: RAD - Forearm Right - 01/27/2021 8:26 pm CLINICAL HISTORY: PAIN COMPARISON: No comparisons FINDINGS: No acute fracture. No malalignment. No significant focal degenerative changes. IMPRESSION: No acute osseous abnormality involving the right forearm.
[2021-01-27] MEDS ORDERED: CODEINE 30MG/APAP 300MG TAB ONE (20:42)
--- NOTE | 2021-01-27 21:04 | ER ---
Nurse's Notes [facility] Name: Raissa Goel Age: 30 yrs Sex: Female : 1990 Arrival Date: 01/27/2021 Time: 19:44 Bed Treatment Private MD: Diagnosis: Pain in right forearm Presentation: 01/27 19:53 Chief complaint: Patient states: Reports hit right FA on doorknob x2 3 days ago; lp1 Reports continued pain to right FA and right wrist, ROM intact. Coronavirus screen: At this time, the client does not indicate any symptoms associated with coronavirus-19. Ebola Screen: No symptoms or risks identified at this time. Initial Sepsis Screen: Does the patient meet any 2 criteria? No. Patient's initial sepsis screen is negative. Does the patient have a suspected source of infection? No. Patient's initial sepsis screen is negative. Risk Assessment: Do you want to hurt yourself or someone else? Patient reports no desire to harm self or others. Onset of symptoms was January 25, 2021. 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 - Social history:: Smoking status: Patient denies any tobacco usage or history of. Screenin:08 Abuse screen: Denies threats or abuse. Nutritional screening: No deficits noted. jb4 Tuberculosis screening: No symptoms or risk factors identified. Fall Risk None identified. Assessment: 20:08 General: Appears in no apparent distress. uncomfortable, Behavior is calm, cooperative, jb4 appropriate for age. Pain: Complains of pain in dorsum of right hand and dorsal aspect of right forearm Pain does not radiate. Pain currently is 6 out of 10 on a pain scale. Quality of pain is described as throbbing. Neuro: Level of Consciousness is awake, alert, obeys commands, Oriented to person, place, time, situation. Cardiovascular: Patient's skin is warm and dry. Respiratory: Airway is patent Respiratory effort is even, unlabored, Respiratory pattern is regular, symmetrical. GI: No signs and/or symptoms were reported involving the gastrointestinal system. : No signs and/or symptoms were reported regarding the genitourinary system. EENT: No signs and/or symptoms were reported regarding the EENT system. Derm: Skin is intact, Skin is pink, warm \T\ dry. Musculoskeletal: Circulation, motion, and sensation intact. Range of motion: intact in all extremities. 21:22 Reassessment: Patient appears in no apparent distress at this time. Patient and/or jb4 family updated on plan of care and expected duration. Pain level reassessed. Patient is alert, oriented x 3, equal unlabored respirations, skin warm/dry/pink. Vital Signs: 19:53 BP 127 / 95; Pulse 129; Resp 16; Temp 98.5(TE); Pulse Ox 100% on R/A; Weight 68.04 kg lp1 (R); Height 5 ft. 1 in. (154.94 cm); Pain 7/10; 20:10 BP 113 / 76; Pulse 115; Resp 16; Pulse Ox 100% ; jb4 21:22 BP 112 / 63; Pulse 94; Resp 16; Pulse Ox 100% on R/A; jb4 19:53 Body Mass Index 28.34 (68.04 kg, 154.94 cm) lp1 ED Course: 19:44 Patient arrived in ED. bp1 19:55 Triage completed. lp1 19:55 Arm band placed on. lp1 20:05 Jim[facility]low [facility]. cp 20:05 Liam Arias MD is Attending Physician. cp 20:08 Torres Yañez, CATHY is Primary Nurse. jb4 20:08 Awaiting ED provider evaluation. jb4 20:08 Patient has correct armband on for positive identification. Bed in low position. Call jb4 light in reach. Side rails up X 1. Pillow given. Ice pack to injury. 20:10 Nurse Practitioner and/or Physician Machine Featheredger And Reducer to see patient. jb4 20:26 XRAY Forearm RIGHT In Process Unspecified. EDMS 21:22 No provider procedures requiring assistance completed. Patient did not have IV access jb4 during this emergency room visit. Administered Medications: 20:18 Not Given (Other Intervention Used): Ibuprofen 800 mg PO once jb4 20:18 Not Given (Other Intervention Used): Tylenol 1000 mg PO once jb4 20:18 Drug: Acetaminophen-Codeine (300 mg-30 mg) 2 tabs Route: PO; jb4 21:19 Follow up: Response: No adverse reaction; RASS: Alert and Calm (0) jb4 21:22 Drug: Motrin (ibuprofen) 800 mg Route: PO; jb4 21:22 Follow up: Response: Medication administered at discharge. jb4 Outcome: 21:03 Discharge ordered by . cp 21:22 Discharged to home ambulatory, with friend. jb4 21:22 Condition: stable 21:22 Discharge instructions given to patient, Instructed on discharge instructions, follow up and referral plans. medication usage, Demonstrated understanding of instructions, follow-up care, medications, Prescriptions given X 1. 21:23 Patient left the ED. jb4 Signatures: Dispatcher [employer] EDDee Hunter, RN RN lp1 Jimenez Marlow PA PA cp Bryson, James, RN RN jb4 Meera Becker
--- NOTE | 2021-01-27 21:04 | EDPHYS ---
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 - Social history:: Smoking status: Patient denies any tobacco usage or history of. ROS: 20:20 MS/extremity: Positive for pain, tenderness, of the right forearm, Negative for cp decreased range of motion, deformity. Exam: 20:25 Constitutional: The patient appears in no acute distress, alert, awake, well developed, cp well nourished. 20:25 Head/Face: Normocephalic, atraumatic. cp 20:25 Cardiovascular: Rate: tachycardic. 20:25 Respiratory: the patient does not display signs of respiratory distress, Respirations: normal, no use of accessory muscles, no retractions, labored breathing, is not present. 20:25 Musculoskeletal/extremity: Extremities: grossly normal except: noted in the dorsal aspect of right forearm: tenderness, There is no evidence of decreased ROM, deformity, ecchymosis, swelling, ROM: limited passive range of motion due to pain, in the right wrist, Pulses: noted to be 2+ in the right radial artery, the right arm Sensation intact. 20:25 Skin: cellulitis, is not appreciated, no rash present. 20:25 Neuro: Motor: is normal, Sensation: is normal. Vital Signs: 19:53 BP 127 / 95; Pulse 129; Resp 16; Temp 98.5(TE); Pulse Ox 100% on R/A; Weight 68.04 kg lp1 (R); Height 5 ft. 1 in. (154.94 cm); Pain 7/10; 20:10 BP 113 / 76; Pulse 115; Resp 16; Pulse Ox 100% ; jb4 21:22 BP 112 / 63; Pulse 94; Resp 16; Pulse Ox 100% on R/A; jb4 19:53 Body Mass Index 28.34 (68.04 kg, 154.94 cm) lp1 Procedures: 21:20 Splinting: Splint applied to right forearm using Orthoglass splint, applied by nurse. cp Examined by me, post splint application: neurovascular intact, Patient tolerated well. MDM: 20:11 Patient medically screened. cp 21:02 Data reviewed: vital signs, nurses notes, radiologic studies, plain films. cp 21:02 Differential diagnosis: closed fracture, contusion. Test interpretation: by ED cp physician or midlevel provider: plain radiologic studies. Counseling: I had a detailed discussion with the patient and/or guardian regarding: the historical points, exam findings, and any diagnostic results supporting the discharge/admit diagnosis, radiology results, to return to the emergency department if symptoms worsen or persist or if there are any questions or concerns that arise at home. 01/27 20:11 Order name: XRAY Forearm RIGHT; Complete Time: 21:00 cp 01/27 21:02 Order name: Splint: volar forearm splint; Complete Time: 21:19 cp Administered Medications: 20:18 Not Given (Other Intervention Used): Ibuprofen 800 mg PO once jb4 20:18 Not Given (Other Intervention Used): Tylenol 1000 mg PO once jb4 20:18 Drug: Acetaminophen-Codeine (300 mg-30 mg) 2 tabs Route: PO; jb4 21:19 Follow up: Response: No adverse reaction; RASS: Alert and Calm (0) jb4 21:22 Drug: Motrin (ibuprofen) 800 mg Route: PO; jb4 21:22 Follow up: Response: Medication administered at discharge. jb4 Disposition: 21:30 Chart complete. cp 01/28 07:04 Co-signature as Attending Physician, Liam Arias MD. mh7 Disposition Summary: 01/27/21 21:03 Discharge Ordered Location: Home cp Problem: new cp Symptoms: have improved cp Condition: Stable cp Diagnosis - Pain in right forearm cp Followup: cp - With: Private Physician - When: 2 - 3 days - Reason: Recheck today's complaints Discharge Instructions: - Discharge Summary Sheet cp - Musculoskeletal Pain cp Forms: - Medication Reconciliation Form cp - Thank You Letter cp - Antibiotic Education cp - Prescription Opioid Use cp Prescriptions: - Diclofenac Sodium 75 mg Oral Tablet Sustained Release - take 1 tablet by ORAL route 2 times per day; 30 tablet; Refills: 0, Product cp Selection Permitted Signatures: Dispatcher [employer] Dee Morales RN RN lp1 Jimenez Marlow PA PA cp Bryson, James, RN RN jb4 Liam Arias MD MD mh7
[2021-01-27 21:29] VITALS: TEMP 98.5; O2SAT 100
[2021-01-27 21:32] VITALS: BP 112/63
[2021-01-27] MEDS ORDERED: IBUPROFEN 400 MG TAB ONE (21:46)
== END 2021-01-27 21:23 | disposition home or self-care (01) ==
LOC: ER 19:43
PROC: 2W3CX1Z Immobilization of Right Lower Arm using Splint (ICD-10-PCS; principal; 2021-01-27)
DX: M79.631 Pain in right forearm (principal); W22.8XXA Striking against or struck by other objects, initial encounter
CPT/HCPCS: 99283

== ENCOUNTER 2022-04-04 16:44 | Emergency (ER) | payer OTHER ==
[2022-04-04] MEDS ORDERED: ACETAMINOPHEN 500 MG TAB ONE (19:58)
[2022-04-04 21:05] LABS: SARS-COV-2 RT PCR NEGATIVE (NEGATIVE)
--- NOTE | 2022-04-04 21:10 | ER ---
Nurse's Notes [facility] Name: Raissa Goel Age: 32 yrs Sex: Female : 1990 Arrival Date: 04/04/2022 Time: 16:48 Bed 9 Private MD: Diagnosis: Streptococcal pharyngitis;Influenza due to identified novel influenza A virus Presentation: 04/04 17:06 Chief complaint: Patient states: she started having fever, sore throat, ear pain, and ap3 body aches today. Coronavirus screen: Client presents with at least one sign or symptom that may indicate coronavirus-19. Ebola Screen: No symptoms or risks identified at this time. Risk Assessment: Do you want to hurt yourself or someone else? Patient reports no desire to harm self or others. Onset of symptoms was April 04, 2022. 17:06 Method Of Arrival: Ambulatory ap3 17:09 Initial Sepsis Screen: Does the patient meet any 2 criteria? Temp <36.0*C (96.8*F)) or ap3 > 38.3*C (100.9*F). HR > 90 bpm. Yes Does the patient have a suspected source of infection? No. Patient's initial sepsis screen is negative. 17:09 Acuity: SENA 3 ap3 Triage Assessment: 17:08 General: Appears ill, Behavior is calm, cooperative, appropriate for age, Reports ap3 chills for fever for feeling ill for fatigue for. Pain: Complains of pain in body aches and throat. EENT: Reports pain when swallowing. Neuro: Level of Consciousness is awake, alert, obeys commands, Oriented to person, place, time, situation. Cardiovascular: Patient's skin is warm and dry. Respiratory: Airway is patent Respiratory effort is even, unlabored, Respiratory pattern is regular, symmetrical. 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 - Social history:: Smoking status: Patient denies any tobacco usage or history of. Screenin:09 Abuse screen: Denies threats or abuse. Nutritional screening: No deficits noted. ap3 Tuberculosis screening: No symptoms or risk factors identified. Fall Risk None identified. Vital Signs: 17:09 BP 108 / 58 RA (auto/reg); Pulse 123; Resp 18; Temp 101.9; Pulse Ox 100% ; Weight 61.23 ap3 kg; Height 5 ft. 1 in. (154.94 cm); 17:09 Body Mass Index 25.51 (61.23 kg, 154.94 cm) ap3 ED Course: 16:48 Patient arrived in ED. as 17:09 Arm band placed on left wrist. ap3 17:11 Triage completed. ap3 17:13 Savana Patel PA-C is [facility]. sb4 17:13 Ian Allen MD is Attending Physician. sb4 20:07 Strep Sent. hb 20:07 COVID-19/FLU A+B Sent. hb 21:13 Ruth Ann Hoffman is Primary Nurse. tw5 Administered Medications: 20:07 Drug: Tylenol 1000 mg Route: PO; hb Outcome: 21:10 Discharge ordered by . sb4 21:27 Discharged to home ambulatory. hb 21:27 Condition: stable 21:27 Discharge instructions given to patient, Instructed on discharge instructions, follow up and referral plans. medication usage, Demonstrated understanding of instructions, follow-up care, medications, Prescriptions given X 2. 21:27 Patient left the ED. hb Signatures: Clau Martinez Heather RN RN Izabella Bobo RN RN ap3 Ruth Ann Hoffman tw5 Savana Patel PA-C PA-C sb4
--- NOTE | 2022-04-04 21:11 | EDPHYS ---
Physician Documentation [facility] Name: Raissa Goel Age: 32 yrs Sex: Female : 1990 Arrival Date: 04/04/2022 Time: 16:48 Bed 9 Private MD: ED Physician Ian Allen HPI: 04/04 17:23 This 32 yrs old Female presents to ER via Ambulatory with complaints of Fever, sb4 Sore Throat, Ear Pain. 17:23 Patient is a 32 year old female otherwise healthy who presented to the ED with sb4 complaints of fever, sore throat, ear pain, body aches for the past 3-4 days. She denies sick contacts although her 2 year old son is here with her as a patient for similar symptoms. She reports taking tylenol and motrin at home. Denies cough, shortness of breath, nausea, vomiting, diarrhea.. 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 - Social history:: Smoking status: Patient denies any tobacco usage or history of. ROS: 17:23 Eyes: Negative for injury, pain, redness, and discharge, Cardiovascular: Negative for sb4 chest pain, palpitations, and edema, Respiratory: Negative for shortness of breath, cough, wheezing, and pleuritic chest pain, Abdomen/GI: Negative for abdominal pain, nausea, vomiting, diarrhea, and constipation, MS/Extremity: Negative for injury and deformity, Skin: Negative for injury, rash, and discoloration. 17:23 Constitutional: Positive for body aches, fever, malaise. 17:23 ENT: Positive for ear pain, sore throat. Exam: 17:23 Constitutional: This is a well developed, well nourished patient who is awake, alert, sb4 and in no acute distress. Head/Face: Normocephalic, atraumatic. Eyes: Pupils equal round and reactive to light, extra-ocular motions intact. Periorbital areas with no swelling, redness, or edema. Respiratory: Lungs have equal breath sounds bilaterally, clear to auscultation and percussion. No rales, rhonchi or wheezes noted. No increased work of breathing, no retractions or nasal flaring. Abdomen/GI: Soft, non-tender, no distension. Skin: Warm, dry with normal turgor. Normal color with no rashes, no lesions, and no evidence of cellulitis. 17:23 ENT: Ear canal(s): erythema, Posterior pharynx: erythema, that is mild. 17:23 Cardiovascular: Rate: tachycardic. Vital Signs: 17:09 BP 108 / 58 RA (auto/reg); Pulse 123; Resp 18; Temp 101.9; Pulse Ox 100% ; Weight 61.23 ap3 kg; Height 5 ft. 1 in. (154.94 cm); 17:09 Body Mass Index 25.51 (61.23 kg, 154.94 cm) ap3 MDM: 17:13 Patient medically screened. sb4 21:51 Data reviewed: vital signs, lab test result(s), Flu: and as a result, I will discharge sb4 patient. 04/04 17:21 Order name: COVID-19/FLU A+B; Complete Time: 21:12 sb4 04/04 17:21 Order name: Strep; Complete Time: 20:53 sb4 Administered Medications: 20:07 Drug: Tylenol 1000 mg Route: PO; hb Disposition Summary: 04/04/22 21:10 Discharge Ordered Location: Home sb4 Problem: new sb4 Symptoms: are unchanged sb4 Condition: Stable sb4 Diagnosis - Streptococcal pharyngitis sb4 - Influenza due to identified novel influenza A virus sb4 Followup: sb4 - With: Private Physician - When: 2 - 3 days - Reason: Recheck today's complaints, Continuance of care, Re-evaluation by your physician Discharge Instructions: - Discharge Summary Sheet sb4 - Strep Throat, Adult, [id number] sb4 - Influenza, Adult, [id number] sb4 Forms: - Medication Reconciliation Form sb4 - Thank You Letter sb4 - Antibiotic Education sb4 - Prescription Opioid Use sb4 Prescriptions: - Amoxicillin 500 mg Oral Capsule - take 1 capsule by ORAL route every 12 hours for 10 days; 20 tablet; Refills: 0, sb4 Product Selection Permitted - Tamiflu 30 mg Oral Capsule - take 1 capsule by ORAL route every 12 hours for 5 days; 10 capsule; Refills: 0, sb4 Product Selection Permitted Addendum: 04/07/2022 19:08 Co-signature as Attending Physician, Ian Allen MD. r n Signatures: Dispatcher [employer] EDIan Johns MD MD rn Baxter, Heather, RN Izabella Chavez RN RN ap3 Brown, Sophia, AAORN WALKER sb4
[2022-04-04 22:21] VITALS: BP 108/58; TEMP 101.9; O2SAT 100
== END 2022-04-04 21:27 | disposition home or self-care (01) ==
LOC: ER 16:44
DX: J10.1 Influenza due to other identified influenza virus with other respiratory manifestations (principal); J02.0 Streptococcal pharyngitis; Z20.822 Contact with and (suspected) exposure to COVID-19
CPT/HCPCS: 87081; 0240U; 99283

== ENCOUNTER 2022-09-12 07:58 | Emergency (ER) | payer OTHER ==
[2022-09-12 08:43] LABS: Specific Gravity 1.016 (1.005-1.030)
[2022-09-12 08:46] LABS: Specific Gravity 1.016 (1.005-1.030); Urine Bacteria <20 /HPF (<20); Urine Bilirubin NEGATIVE (Negative); Urine Blood 3+ (OVER) (Negative); Urine Clarity Extremely Turbid (Clear); Urine Color Light-Orange (Yellow); Urine Glucose NEGATIVE (Negative); Urine Mucus Slight /HPF (None Seen); Urine Protein 1+ (Negative); Urine RBC >50 /HPF (None Seen); Urine Urobilinogen Normal (Normal); Urine WBC Clump Occasional /HPF (None Seen)
[2022-09-12 09:06] LABS: Hematocrit 41.1 % (36.0-45.0); Lymphocytes % 11.5 % (15.3-44.8); MPV 7.9 fL (7.6-11.3); RBC Red Blood Cell Count 5.41 M/uL (3.86-4.86)
[2022-09-12 09:20] LABS: Potassium 3.6 mEq/L (3.5-5.1)
--- NOTE | 2022-09-12 09:21 | RAD REPORT ---
EXAM DESCRIPTION: CT - Abdomen Pelvis W Contrast - 09/12/2022 9:08 am CLINICAL HISTORY: Abdominal pain COMPARISON: none. TECHNIQUE: Computed axial tomography of the abdomen pelvis was obtained. 100 cc Isovue-300 was admin istered intravenously. Oral contrast was not requested which limits evaluation of bowel and appendix All CT scans are performed using dose optimization technique as appropriate and may include automated exposure control or mA/KV adjustment according to patient size. FINDINGS: Small gallstone Spleen, pancreas, adrenals and kidneys unremarkable Normal appendix No evidence of diverticulitis. Small left ovarian cyst. No significant free fluid Bladder wall thickening IMPRESSION: Cholelithiasis without evidence cholecystitis Bladder wall thickening probably indicating inflammation. Followup is recommended
--- NOTE | 2022-09-12 09:40 | EDPHYS ---
Physician Documentation [facility] Name: Raissa Goel Age: 32 yrs Sex: Female : 1990 Arrival Date: 09/12/2022 Time: 07:58 Bed 15 Private MD: ED Physician Jacobo Harrison HPI: 09/12 09:39 This 32 yrs old Female presents to ER via Ambulatory with complaints of Pain kb With Urination, Urinary Problem - blood. 09:39 The patient presents with urinary symptoms, dysuria, hematuria. Onset: The kb symptoms/episode began/occurred 2 day(s) ago. Modifying factors: The symptoms are alleviated by nothing, the symptoms are aggravated by urinating. Associated signs and symptoms: Pertinent positives: dysuria, hematuria, Pertinent negatives: fever. Severity of symptoms: At their worst the symptoms were moderate, in the emergency department the symptoms are unchanged. The patient has not experienced similar symptoms in the past. The patient has not recently seen a physician. Pt reports burning with urination for 2-3 days, hematuria this morning. Reports right flank pain that has been on and off for about 2 weeks and lower abd pain. . Historical: - Allergies: 08:10 No Known Allergies; ll1 - PMHx: 08:10 None; ll1 - PSHx: 08:10 tubal ligation; ll1 - Immunization history:: Client reports receiving the 2nd dose of the Covid vaccine. - Social history:: Smoking status: Patient denies any tobacco usage or history of. ROS: 09:36 Constitutional: Negative for fever, chills, and weight loss. kb 09:36 Abdomen/GI: Positive for abdominal pain, of the suprapubic area, Negative for nausea, vomiting, and diarrhea. 09:36 : Positive for flank pain, hematuria, burning with urination. 09:36 All other systems are negative. Exam: 09:36 Constitutional: This is a well developed, well nourished patient who is awake, alert, kb and in no acute distress. Head/Face: Normocephalic, atraumatic. ENT: Moist Mucous membranes Cardiovascular: Regular rate and rhythm with a normal S1 and S2. No gallops, murmurs, or rubs. No pulse deficits. Respiratory: Respirations even and unlabored. No increased work of breathing. Talking in full sentences Skin: Warm, dry with normal turgor. Normal color. MS/ Extremity: Pulses equal, no cyanosis. Neurovascular intact. Full, normal range of motion. Neuro: Awake and alert, GCS 15, oriented to person, place, time, and situation. Moves all extremities. Normal gait. Psych: Awake, alert, with orientation to person, place and time. Behavior, mood, and affect are within normal limits. 09:36 Abdomen/GI: Inspection: abdomen appears normal, Bowel sounds: normal, Palpation: soft, in all quadrants, mild abdominal tenderness, in the suprapubic area and right lower quadrant. 09:36 Back: CVA tenderness, that is mild, is noted on the right. Vital Signs: 08:10 BP 122 / 90; Pulse 90; Resp 16; Temp 97.9; Pulse Ox 100% on R/A; Pain 5/10; ll1 09:19 BP 115 / 75; Pulse 87; Resp 16; Pulse Ox 100% ; ko1 08:10 Pain Scale: Adult ll1 MDM: 08:02 Patient medically screened. kb 09:38 Differential diagnosis: appendicitis, kidney stone, nonspecific abdominal pain, ovarian kb cyst, urinary tract infection, cystitis, pyelonephritis. Data reviewed: vital signs, nurses notes. Counseling: I had a detailed discussion with the patient and/or guardian regarding: the historical points, exam findings, and any diagnostic results supporting the discharge/admit diagnosis, lab results, radiology results, the need for outpatient follow up, a family practitioner, to return to the emergency department if symptoms worsen or persist or if there are any questions or concerns that arise at home. 09/12 08:09 Order name: Test, Urine; Complete Time: 08:49 kb 09/12 08:09 Order name: Urinalysis w/ reflexes; Complete Time: 08:49 kb 09/12 08:49 Order name: Urine Culture EDMS 09/12 08:50 Order name: CBC with Diff; Complete Time: 09:08 kb 09/12 08:50 Order name: Basic Metabolic Panel; Complete Time: 09:21 kb 09/12 08:50 Order name: CT Abd/Pelvis - IV Contrast Only; Complete Time: 09:32 kb 09/12 08:50 Order name: IV Saline Lock; Complete Time: 09:00 kb 09/12 08:50 Order name: Labs collected and sent; Complete Time: 09:00 kb Administered Medications: 09:50 Drug: Rocephin IV 1 grams Route: IV; Rate: calculated rate; Site: right antecubital; ko1 09:50 Drug: Ketorolac IVP 15 mg Route: IVP; Site: right antecubital; ko1 Disposition: 11:22 Co-signature as Attending Physician, Jacobo Harrison MD I reviewed the patient's care rt provided by the Advanced Practice Provider and agree with the diagnosis and treatment plan. Disposition Summary: 09/12/22 09:40 Discharge Ordered Location: Home kb Condition: Stable kb Diagnosis - Acute cystitis with hematuria kb Followup: kb - With: Emergency Department - When: As needed - Reason: Worsening of condition Followup: kb - With: Private Physician - When: 2 - 3 days - Reason: Recheck today's complaints, Continuance of care, Re-evaluation by your physician Discharge Instructions: - Discharge Summary Sheet kb - Urinary Tract Infection, Adult, [id number] kb Forms: - Medication Reconciliation Form kb - Thank You Letter kb - Antibiotic Education kb - Prescription Opioid Use kb Prescriptions: - Augmentin 875-125 mg Oral Tablet - take 1 tablet by ORAL route every 12 hours for 10 days; 20 tablet; Refills: 0, kb Product Selection Permitted Signatures: Dispatcher [employer] Josephine Godinez FNP-C FNP-Jose Angel Miller, RN RN ll1 Yas Paula RN RN ko1 Jacobo Harrison MD MD rt
--- NOTE | 2022-09-12 09:40 | ER ---
Nurse's Notes [facility] Name: Raissa Goel Age: 32 yrs Sex: Female : 1990 Arrival Date: 09/12/2022 Time: 07:58 Bed 15 Private MD: Diagnosis: Acute cystitis with hematuria Presentation: 09/12 08:10 Chief complaint: Patient states: Dysuria for 2-3 days. Blood in urine started today. No ll1 fever. Coronavirus screen: Vaccine status: Patient reports receiving the 2nd dose of the covid vaccine. Client denies travel out of the [place] in the last 14 days. At this time, the client does not indicate any symptoms associated with coronavirus-19. Ebola Screen: Patient denies travel to an Ebola-affected area in the 21 days before illness onset. Initial Sepsis Screen: Does the patient meet any 2 criteria? No. Patient's initial sepsis screen is negative. Does the patient have a suspected source of infection? Yes: Dysuria/Frequency/Urgency/UTI. Risk Assessment: Do you want to hurt yourself or someone else? Patient reports no desire to harm self or others. Onset of symptoms was September 10, 2022. 08:10 Method Of Arrival: Ambulatory ll1 08:10 Acuity: SENA 4 ll1 Triage Assessment: 08:12 General: Appears in no apparent distress. Behavior is calm, cooperative, appropriate ll1 for age. Pain: Complains of pain in pelvis Pain currently is 5 out of 10 on a pain scale. Quality of pain is described as aching. : Reports burning with urination, pain with urination, urgency, blood in urine. Historical: - Allergies: 08:10 No Known Allergies; ll1 - PMHx: 08:10 None; ll1 - PSHx: 08:10 tubal ligation; ll1 - Immunization history:: Client reports receiving the 2nd dose of the Covid vaccine. - Social history:: Smoking status: Patient denies any tobacco usage or history of. Screenin:17 [facility] ED Fall Risk Assessment (Adult) History of falling in the last 3 months, ko1 including since admission No falls in past 3 months (0 pts) Confusion or Disorientation No (0 pts) Intoxicated or Sedated No (0 pts) Impaired Gait No (0 pts) Mobility Assist Device Used No (0 pt) Altered Elimination No (0 pt) Score/Fall Risk Level 0 - 2 = Low Risk Oriented to surroundings, Maintained a safe environment, Educated pt \T\ family on fall prevention, incl call for assistance when getting out of bed, Assessed \T\ reinforced patient's understanding of fall precautions, Provided non-skid footwear, Hourly rounding (assess needs \T\ fall precautionary measures) done, Used ambulatory aids as needed (educated on \T\ assisted with), Used gait belt as appropriate. Abuse screen: Denies threats or abuse. Denies injuries from another. Nutritional screening: No deficits noted. Tuberculosis screening: No symptoms or risk factors identified. Assessment: 08:17 General: Appears in no apparent distress. uncomfortable, Behavior is calm, cooperative, ko1 appropriate for age. Pain: Complains of pain in pelvis. Neuro: No deficits noted. Cardiovascular: No deficits noted. Respiratory: No deficits noted. GI: No deficits noted. : Reports burning with urination, pain in suprapubic area. EENT: No deficits noted. Derm: No deficits noted. Musculoskeletal: No deficits noted. Vital Signs: 08:10 BP 122 / 90; Pulse 90; Resp 16; Temp 97.9; Pulse Ox 100% on R/A; Pain 5/10; ll1 09:19 BP 115 / 75; Pulse 87; Resp 16; Pulse Ox 100% ; ko1 08:10 Pain Scale: Adult ll1 ED Course: 08:01 Patient arrived in ED. am2 08:02 Joseph[facility] Owusu [facility]C [facility] kb 08:02 Jacobo Harrison MD is Attending Physician. kb 08:02 Arm band placed on Patient placed in an exam room, on a stretcher. ll1 08:12 Triage completed. ll1 08:16 Yas Paula, CATHY is Primary Nurse. ko1 08:17 Patient has correct armband on for positive identification. Bed in low position. Call ko1 light in reach. Pulse ox on. NIBP on. Warm blanket given. 08:17 No provider procedures requiring assistance completed. ko1 08:20 Test, Urine Sent. ko1 08:20 Urinalysis w/ reflexes Sent. ko1 08:55 Inserted saline lock: 20 gauge in right antecubital area, using aseptic technique. ko1 Blood collected. 09:00 Basic Metabolic Panel Sent. ko1 09:00 CBC with Diff Sent. ko1 09:00 Urine Culture Sent. ko1 09:05 CT Abd/Pelvis - IV Contrast Only In Process Unspecified. EDMS 10:16 IV discontinued, intact, bleeding controlled, No redness/swelling at site. Pressure ko1 dressing applied. Administered Medications: 09:50 Drug: Rocephin IV 1 grams Route: IV; Rate: calculated rate; Site: right antecubital; ko1 09:50 Drug: Ketorolac IVP 15 mg Route: IVP; Site: right antecubital; ko1 Medication: 08:17 VIS not applicable for this client. ko1 Outcome: 09:40 Discharge ordered by MD. isbell 10:16 Discharged to home ambulatory. ko1 10:16 Condition: improved 10:16 Discharge instructions given to patient, Instructed on discharge instructions, follow up and referral plans. medication usage, Demonstrated understanding of instructions, follow-up care, medications, Prescriptions given X 1. 10:17 Patient left the ED. ko1 Signatures: Dispatcher [employer] EDMS Josephine Ouwsu, AEROSPACE TECHNICIAN-C AEROSPACE TECHNICIAN-Izabella Clements Lynsay, RN RN ll1 Yas Paula RN RN ko1
[2022-09-12] MEDS ORDERED: CEFTRIAXONE 1000 MG/VIAL ONE (09:56)
[2022-09-12] MEDS ORDERED: KETOROLAC 30 MG/ML INJ ONE (09:56)
[2022-09-12 10:34] VITALS: O2SAT 100
[2022-09-12 10:35] VITALS: BP 122/90; TEMP 97.9
== END 2022-09-12 10:17 | disposition home or self-care (01) ==
LOC: ER 07:58
DX: N30.01 Acute cystitis with hematuria (principal)
CPT/HCPCS: 87088; 85025; 81001; 87086; 80048; 36415; 81025; 74177; 96375; 96374; 99284; Q9967; J0696

== ENCOUNTER 2024-12-16 14:37 | Emergency (ER) | payer OTHER ==
[2024-12-16] MEDS ORDERED: FAMOTIDINE 20 MG/2 ML VIAL IV ONE (15:33)
[2024-12-16 15:47] LABS: Absolute Lymphocytes (CBC) 0.9 K/uL (0.7-4.9); Hematocrit 40.1 % (36.0-45.0); Hemoglobin 13.1 g/dL (12.0-15.0); MCH 24.9 pg (27.0-35.0); MCHC 32.7 g/dL (32.0-36.0); MCV 75.9 fL (80-100); MPV 8.1 fL (7.6-11.3); Nucleated RBC Absolute Count 0.0 (0-0); Nucleated Red Blood Cells % 0.1 % (0-0); RBC Red Blood Cell Count 5.28 M/uL (3.86-4.86); White Blood Count 6.10 thou/uL (4.3-10.9)
[2024-12-16 15:54] LABS: PT Prothrombin Time 11.7 SECONDS (10-13.0); Protime INR 1.04
[2024-12-16 15:59] LABS: Urine Microscopic Reflex YN NO UMIC
[2024-12-16 16:06] LABS: ALT/SGPT 17 U/L (13-56); AST/SGOT 12 U/L (15-37); Albumin 3.6 g/dL (3.4-5.0); Albumin/Globulin Ratio 1.0 (1.1-1.8); Alkaline Phosphatase 63 U/L (45-117); Anion Gap 6.2 mEq/L (5.0-15.0); BUN Blood Urea Nitrogen 11 mg/dL (7-18); Globulin 3.7 g/dL (2.3-3.5); Glucose Level 110 mg/dL (74-106); Lipase 49 U/L (13-75); Magnesium 2.1 mg/dL (1.6-2.4); NT PRO-BNP 20 pg/mL (<125); Potassium 3.2 mEq/L (3.5-5.1); Troponin High Sensitivity 3.5 pg/mL (<58.9)
[2024-12-16 16:08] LABS: Bilirubin Indirect, Calculated 0.3 mg/dL (0.2-0.8)
--- NOTE | 2024-12-16 16:11 | RAD REPORT ---
EXAM: Chest Single View HISTORY: 34 years Female CHEST PAIN COMPARISON: No prior exams FINDINGS: LUNGS/PLEURA: The lungs are clear. No pleural effusions or pneumothorax. No pulmonary edema. CARDIAC/MEDIASTINUM: The cardiac silhouette is within normal limits. UPPER ABDOMEN: No significant abnormality. BONES: No acute abnormality. LINES/TUBES/OTHER: N/A IMPRESSION: No evidence of acute cardiopulmonary disease.
--- NOTE | 2024-12-16 16:20 | EDPHYS ---
Physician Documentation [facility] Name: Raissa Goel Age: 34 yrs Sex: Female : 1990 Arrival Date: 12/16/2024 Time: 14:37 Bed 23 Private MD: ED Physician Jimenez Carrizales HPI: 12/16 16:12 This 34 yrs old Female presents to ER via Ambulatory with complaints of Chest jeff Pain. 16:12 The patient or guardian reports chest pain that is located primarily in the anterior jeff chest wall, bilaterally. The pain does not radiate. Associated signs and symptoms: The patient has no apparent associated signs or symptoms. The chest pain is described as aching. Duration: The patient or guardian reports multiple episodes, that wax and wane, with no pattern. Modifying factors: The symptoms are alleviated by rest. the symptoms are aggravated by emotionally stressful situations. Severity of pain: At its worst the pain was mild in the emergency department the pain is unchanged. The patient has experienced similar episodes in the past, today's symptoms are similar, to previous stress. 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 - Infectious Disease History:: Denies. - Social history:: Smoking status: Patient denies any tobacco usage or history of. - Family history:: not pertinent. ROS: 16:12 Constitutional: Negative for fever, chills, and weight loss, Eyes: Negative for injury, jeff pain, redness, and discharge, ENT: Negative for injury, pain, and discharge, Neck: Negative for injury, pain, and swelling, Respiratory: Negative for shortness of breath, cough, wheezing, and pleuritic chest pain, Abdomen/GI: Negative for abdominal pain, nausea, vomiting, diarrhea, and constipation, Back: Negative for injury and pain, : Negative for injury, bleeding, discharge, and swelling, MS/Extremity: Negative for injury and deformity, Skin: Negative for injury, rash, and discoloration, Neuro: Negative for headache, weakness, numbness, tingling, and seizure, Psych: Negative for depression, anxiety, suicide ideation, homicidal ideation, and hallucinations, Allergy/Immunology: Negative for hives, rash, and allergies, Endocrine: Negative for neck swelling, polydipsia, polyuria, polyphagia, and marked weight changes, Hematologic/Lymphatic: Negative for swollen nodes, abnormal bleeding, and unusual bruising, 16:12 Cardiovascular: Positive for chest pain, of the chest, 16:12 MS/extremity: Negative for acute changes, Exam: 16:12 Constitutional: This is a well developed, well nourished patient who is awake, alert, jeff and in no acute distress. Head/Face: Normocephalic, atraumatic. Eyes: Pupils equal round and reactive to light, extra-ocular motions intact. Lids and lashes normal. Conjunctiva and sclera are non-icteric and not injected. Cornea within normal limits. Periorbital areas with no swelling, redness, or edema. ENT: Nares patent. No nasal discharge, no septal abnormalities noted. Tympanic membranes are normal and external auditory canals are clear. Oropharynx with no redness, swelling, or masses, exudates, or evidence of obstruction, uvula midline. Mucous membranes moist. Neck: Trachea midline, no thyromegaly or masses palpated, and no cervical lymphadenopathy. Supple, full range of motion without nuchal rigidity, or vertebral point tenderness. No Meningismus. Chest/axilla: Normal chest wall appearance and motion. Nontender with no deformity. No lesions are appreciated. Cardiovascular: Regular rate and rhythm with a normal S1 and S2. No gallops, murmurs, or rubs. Normal PMI, no JVD. No pulse deficits. Respiratory: Lungs have equal breath sounds bilaterally, clear to auscultation and percussion. No rales, rhonchi or wheezes noted. No increased work of breathing, no retractions or nasal flaring. Abdomen/GI: Soft, non-tender, with normal bowel sounds. No distension or tympany. No guarding or rebound. No evidence of tenderness throughout. Back: No spinal tenderness. No costovertebral tenderness. Full range of motion. Skin: Warm, dry with normal turgor. Normal color with no rashes, no lesions, and no evidence of cellulitis. MS/ Extremity: Pulses equal, no cyanosis. Neurovascular intact. Full, normal range of motion., bilateral aka Neuro: Awake and alert, GCS 15, oriented to person, place, time, and situation. Cranial nerves II-XII grossly intact. Motor strength 5/5 in all extremities. Sensory grossly intact. Cerebellar exam normal. Normal gait. Psych: Awake, alert, with orientation to person, place and time. Behavior, mood, and affect are within normal limits. 16:12 ECG was reviewed by the Attending Physician. 16:12 Musculoskeletal/extremity: ROM: no acute changes, Circulation is intact in all extremities. Sensation intact. Compartment Syndrome exam of affected extremity: is normal. Joints: All joints appear normal with full range of motion. Weight bearing: able to fully bear weight, DVT Exam: No signs of deep vein thrombosis. no pain, no swelling, no tenderness, negative Homans' sign noted on exam, no appreciated bluish discoloration, no erythema, no increased warmth, Vital Signs: 14:52 BP 133 / 88; Pulse 125; Resp 19; Temp 98.2; Pulse Ox 96% ; Weight 56.7 kg; Height 5 ft. me1 1 in. ; Pain 5/10; 15:51 BP 102 / 80; Pulse 95; Resp 20; Pulse Ox 100% on R/A; jb4 14:52 Body Mass Index 23.62 (56.70 kg, 154.94 cm) me1 14:52 Pain Scale: Adult me1 [place] Coma Score: 16:20 Eye Response: spontaneous(4). Motor Response: obeys commands(6). Verbal Response: jeff oriented(5). Total: 15. MDM: 14:43 Medical Screening Exam initiated jeff 16:12 Differential diagnosis: abnormal EKG, acute myocardial infarction, acute pericarditis, jeff anxiety, coronary artery disease chest wall pain, congestive heart failure cholecystitis, Cholelithiasis costochondritis, esophagitis, gastritis, gastroesophageal reflux disease (GERD), herpes zoster, hiatal hernia, Deneen-Younger syndrome, myocarditis, pancreatitis, peptic ulcer disease, pericarditis, pleurisy, pneumonia, pneumothorax, pulmonary embolus, stable angina, thoracic aortic disection, unstable angina. HEART Score: History: Slightly Suspicious (0), ECG: Non specific repolarization disturbance / LBTB / PM (1), Age: < or = 45 years (0), Risk Factors: No Risk Factors Known (0), Troponin: < or = 1 x Normal Limit (0). MAGALIE Risk Score: TOTAL SCORE = 0. Data reviewed: vital signs, nurses notes, lab test result(s), EKG, radiologic studies, plain films. Consideration of Admission/Observation Escalation of care including admission/observation considered. I considered the following discharge prescriptions or medication management in the emergency department Medications were administered in the Emergency Department. See MAR. Independent interpretation of the following test(s) in the Emergency Department EKG: See my EKG interpretation above. Test considered but Not performed: Ultrasound no 2 d echo. Historians other than the Patient: EMS: ems well informed. Counseling: I had a detailed discussion with the patient and/or guardian regarding the historical points, exam findings, and any diagnostic results supporting the discharge/admit diagnosis, lab results, radiology results, the need for outpatient follow up, for definitive care, a family practitioner. 16:21 ED course: no homans , no cords, no trauma , no stasis, no hcs. [facility] 12/16 14:42 Order name: Basic Metabolic Panel; Complete Time: 16:11 [facility] 12/16 14:42 Order name: CBC with Diff; Complete Time: 15:50 12/16 14:42 Order name: LFT's; Complete Time: 16:11 [facility] 12/16 14:42 Order name: Magnesium; Complete Time: 16:11 [facility] 12/16 14:42 Order name: NT PRO-BNP; Complete Time: 16:11 [facility] 12/16 14:42 Order name: PT-INR; Complete Time: 16:11 [facility] 12/16 14:42 Order name: Troponin HS; Complete Time: 16:11 [facility] 12/16 14:42 Order name: Lipase; Complete Time: 16:11 [facility] 12/16 14:42 Order name: UA Rfx Tay Cult if indicated; Complete Time: 16:11 [facility] 12/16 14:42 Order name: Test, Serum; Complete Time: 16:18 [facility] 12/16 14:42 Order name: XRAY Chest (1 view); Complete Time: 16:18 jeff 12/16 14:42 Order name: Cardiac monitoring; Complete Time: 14:54 [facility] 12/16 14:42 Order name: EKG - Nurse/Tech; Complete Time: 14:54 [facility] 12/16 14:42 Order name: IV Saline Lock; Complete Time: 15:30 [facility] 12/16 14:42 Order name: Labs collected and sent; Complete Time: 15:30 [facility] 12/16 14:42 Order name: O2 Per Protocol; Complete Time: 15:30 [facility] 12/16 14:42 Order name: O2 Sat Monitoring; Complete Time: 15:30 [facility] EC:12 Rate is 115 beats/min. Rhythm is regular. QRS [place] is Normal. [place] interval is normal. jeff QRS interval is normal. QT interval is normal. No Q waves. T waves are Normal. No ST changes noted. Clinical impression: Sinus tachycardia. Interpreted by me. Reviewed by me. Administered Medications: 15:37 Drug: Famotidine IVP 20 mg IVP once; dilute with 10 mL 0.9% NaCl; give over 2 minutes jb4 Route: IVP; Site: right antecubital; 16:35 Follow up: Response: No adverse reaction jb4 16:34 Drug: Potassium PO Effervescent Tablet 25 mEq PO once; dissolve in 4 ounces of water or jb4 juice Route: PO; 16:35 Follow up: Response: Medication administered at discharge. jb4 Disposition Summary: 12/16/24 16:19 Discharge Ordered Notes: Location: Home jeff Problem: new jeff Symptoms: have improved jeff Condition: Stable jeff Diagnosis - Adjustment disorder with anxiety jeff - Anxiety disorder, unspecified jeff - Chest pain, unspecified jeff - Tachycardia, unspecified jeff - Hypokalemia jeff Followup: jeff - With: Private Physician - When: 2 - 3 days - Reason: Recheck today's complaints, Continuance of care, Re-evaluation by your physician Followup: jeff - With: Sarath Stevens MD - When: 2 - 3 days - Reason: Recheck today's complaints, Re-evaluation by your physician Discharge Instructions: - Discharge Summary Sheet jeff - Adjustment Disorder, Adult jeff - Nonspecific Chest Pain, Adult jeff - Potassium Content of Foods jeff - Nonspecific Chest Pain, Adult, [id number] jeff - Aspirin and Your Heart jeff - Hypokalemia jeff - Supporting Someone With Anxiety jeff - Managing Anxiety, Adult jeff Forms: - Medication Reconciliation Form jeff - Antibiotic Education jeff - Prescription Opioid Use jeff - Patient Portal Instructions jeff - Leadership Thank You Letter [facility] Prescriptions: - Hydroxyzine HCl 25 mg Oral Tablet - take 1 tablet ORAL route every 6 hours As needed; 30 tablet; Refills: 0, jeff Product Selection Permitted Signatures: Dispatcher [employer] EDMS Jimenez Carrizales MD MD cha Bryson, James, RN RN jb4 Mary Anne Barakat, CATHY RN me1 Corrections: (The following items were deleted from the chart) 14:43 14:43 BASIC METABOLIC PANEL+C.LAB.BRZ ordered. EDMS EDMS 14:43 14:43 CBC+H.LAB.BRZ ordered. EDMS EDMS 14:43 14:43 HEPATIC FUNCTION+C.LAB.BRZ ordered. EDMS EDMS 14:43 14:43 MAGNESIUM+C.LAB.BRZ ordered. EDMS EDMS 14:43 14:43 PROBNP+C.LAB.BRZ ordered. EDMS EDMS 14:43 14:43 PROTIME (+INR)+COAG.LAB.BRZ ordered. EDMS EDMS 14:43 14:43 Troponin High Sensitivity+C.LAB.BRZ ordered. EDMS EDMS 14:43 14:43 LIPASE+C.LAB.BRZ ordered. EDMS EDMS 14:43 14:43 UA Rfx Tay Cult if indicated+U.LAB.BRZ ordered. EDMS EDMS 14:43 14:43 TEST, SERUM+SC.LAB.BRZ ordered. EDMS EDMS 14:43 14:43 Chest Single View+RAD.RAD.BRZ ordered. EDMS EDMS
--- NOTE | 2024-12-16 16:20 | ER ---
Nurse's Notes [facility] Name: Raissa Goel Age: 34 yrs Sex: Female : 1990 Arrival Date: 12/16/2024 Time: 14:37 Bed 23 Private MD: Diagnosis: Adjustment disorder with anxiety;Anxiety disorder, unspecified;Chest pain, unspecified;Tachycardia, unspecified;Hypokalemia Presentation: 12/16 14:52 Chief complaint: Patient states: c/o chest pain "pressure" 5/10, with sob for the past me1 couple of days. Reports that she is under a lot of stress lately. Coronavirus screen: Vaccine status: Patient reports receiving the 2nd dose of the covid vaccine. Ebola Screen: No symptoms or risks identified at this time. Initial Sepsis Screen: Does the patient meet any 2 criteria? HR > 90 bpm. Does the patient have a suspected source of infection? No. Patient's initial sepsis screen is negative. Risk Assessment: Do you want to hurt yourself or someone else? Patient reports no desire to harm self or others. Onset of symptoms was December 14, 2024. 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 - Infectious Disease History:: Denies. - Social history:: Smoking status: Patient denies any tobacco usage or history of. - Family history:: not pertinent. Screenin:47 [facility] ED Fall Risk Assessment (Adult) History of falling in the last 3 months, jb4 including since admission No falls in past 3 months (0 pts) Confusion or Disorientation No (0 pts) Intoxicated or Sedated No (0 pts) Impaired Gait No (0 pts) Mobility Assist Device Used No (0 pt) Altered Elimination No (0 pt) Score/Fall Risk Level 0 - 2 = Low Risk Oriented to surroundings, Maintained a safe environment. Abuse screen: Denies threats or abuse. Nutritional screening: No deficits noted. Tuberculosis screening: No symptoms or risk factors identified. Assessment: 15:30 General: Appears in no apparent distress. comfortable, Behavior is calm, cooperative, jb4 appropriate for age. Pain: Complains of pain in chest Pain does not radiate. Pain currently is 5 out of 10 on a pain scale. Neuro: Level of Consciousness is awake, alert, obeys commands, Oriented to person, place, time, situation. Cardiovascular: Patient's skin is warm and dry. Respiratory: Airway is patent Respiratory effort is even, unlabored, Respiratory pattern is regular, symmetrical. Derm: Skin is intact, Skin is pink, warm \\T\\ dry. Musculoskeletal: Circulation, motion, and sensation intact. Range of motion: intact in all extremities. 16:47 Reassessment: Patient appears in no apparent distress at this time. Patient and/or jb4 family updated on plan of care and expected duration. Pain level reassessed. Patient is alert, oriented x 3, equal unlabored respirations, skin warm/dry/pink. Vital Signs: 14:52 BP 133 / 88; Pulse 125; Resp 19; Temp 98.2; Pulse Ox 96% ; Weight 56.7 kg; Height 5 ft. me1 1 in. ; Pain 5/10; 15:51 BP 102 / 80; Pulse 95; Resp 20; Pulse Ox 100% on R/A; jb4 14:52 Body Mass Index 23.62 (56.70 kg, 154.94 cm) me1 14:52 Pain Scale: Adult me1 [place] Coma Score: 16:20 Eye Response: spontaneous(4). Motor Response: obeys commands(6). Verbal Response: jeff oriented(5). Total: 15. ED Course: 14:39 Patient arrived in ED. mr 14:40 Jimenez Carrizales MD is Attending Physician. [facility] 14:53 Triage completed. me1 14:54 Arm band placed on Patient placed in an exam room. me1 14:54 EKG done, by ED staff, reviewed by Jimenez Carrizales MD. me1 15:30 Patient has correct armband on for positive identification. Bed in low position. Call jb4 light in reach. Side rails up X 1. Provided Education on: plan of care. Client placed on continuous cardiac and pulse oximetry monitoring. NIBP monitoring applied. site monitor on. Pulse ox on. 15:30 Initial lab(s) drawn, by slab off mill tender, sent to lab. Inserted saline lock: 20 gauge in right ts3 antecubital area, using aseptic technique. Blood collected. Flushed with 10 mL NS. 15:30 Urine collected: clean catch specimen, sent to lab. ts3 15:51 Torres Yañez, RN is Primary Nurse. jb4 16:06 XRAY Chest (1 view) In Process Unspecified. EDOH 16:18 Sarath Stevens MD is Referral Physician. [facility] 16:20 No provider procedures requiring assistance completed. IV discontinued, intact, jb4 bleeding controlled, No redness/swelling at site. Pressure dressing applied. Patient maintains SpO2 saturation greater than 95% on room air. Administered Medications: 15:37 Drug: Famotidine IVP 20 mg IVP once; dilute with 10 mL 0.9% NaCl; give over 2 minutes jb4 Route: IVP; Site: right antecubital; 16:35 Follow up: Response: No adverse reaction jb 16:34 Drug: Potassium PO Effervescent Tablet 25 mEq PO once; dissolve in 4 ounces of water or jb4 juice Route: PO; 16:35 Follow up: Response: Medication administered at discharge. jb4 Medication: 16:47 VIS not applicable for this client. jb4 Outcome: 16:19 Discharge ordered by . [facility] 16:20 Discharged to home ambulatory, with family, [facility] 16:20 Condition: stable 16:20 Discharge instructions given to patient, Instructed on discharge instructions, follow up and referral plans. no drinking with medication, no driving heavy equipment, medication usage, Demonstrated understanding of instructions, follow-up care, medications, Prescriptions given X 1, 16:48 Patient left the ED. jb4 Signatures: Dispatcher [employer] EDOH Jimenez Carrizales MD MD cha Rivera, Mary, Reg Reg mr Torres Yañez, RN RN jb4 Mary Anne Barakat RN RN la1 Marina Tabares ts3
[2024-12-16] MEDS ORDERED: POTASSIUM 25 MEQ EFFERV TAB ONE (16:21)
[2024-12-16 18:13] VITALS: TEMP 98.2
[2024-12-16 18:16] VITALS: BP 102/80; O2SAT 100
== END 2024-12-16 16:48 | disposition home or self-care (01) ==
LOC: ER 14:37
DX: R07.9 Chest pain, unspecified (principal); F43.22 Adjustment disorder with anxiety; R00.0 Tachycardia, unspecified; E87.6 Hypokalemia
CPT/HCPCS: 36415; 71045; 80048; 80076; 81003; 83690; 83735; 83880; 84484; 84703; 85025; 85610; 93005; 96374; 99285